=== PATIENT | male | born 1960 | race Caucasian/White ===

== ENCOUNTER 2018-08-01 17:22 | Inpatient (IN) | payer OTHER, MEDICARE ==
[2018-08-01] MEDS ORDERED: SODIUM CHLORIDE 0.9% 1,000 ML IV STA (17:51)
[2018-08-01] MEDS ORDERED: methylPREDNISolone SOD SUCCI 125 MG/2 ML VIAL IV STA (17:51)
[2018-08-01 18:04] LABS: Basophils # (A) 0.1 k/uL (0-0.2); Basophils % (A) 1 %; Eosinophils # (A) 0.3 k/uL (0-0.7); Eosinophils % (A) 2 %; HCT 48.8 % (39.0-53.0); HGB 15.9 gm/dL (13.0-17.5); Lymphocytes % (A) 14 %; MCH 29.8 pg (25.0-35.0); MCHC 32.6 g/dL (31.0-37.0); MCV 91.6 fL (80.0-100.0); Mean Platelet Volume 6.9; Monocytes # (A) 0.8 k/uL (0-1.0); Monocytes % (A) 6 %; Neutrophils # (A) 11.6 k/uL (1.3-7.7); Neutrophils % (A) 77 %; Platelet Count 284 k/uL (150-450); RBC 5.32 m/uL (4.30-5.90)
[2018-08-01 18:13] LABS: INR 1.1 (<1.2); Partial Thromboplastin Time 22.8 sec (22.0-30.0); Prothrombin Time 10.3 sec (9.0-12.0)
[2018-08-01 18:18] LABS: ALT 114 U/L (21-72); AST 82 U/L (17-59); Albumin 3.7 g/dL (3.5-5.0); Alkaline Phosphatase 114 U/L (38-126); Anion Gap 10 mmol/L; Blood Urea Nitrogen 28 mg/dL (9-20); Calcium 9.7 mg/dL (8.4-10.2); Carbon Dioxide 33 mmol/L (22-30); Chloride 96 mmol/L (98-107); Glucose 118 mg/dL (74-99); Magnesium 1.7 mg/dL (1.6-2.3); Potassium 3.7 mmol/L (3.5-5.1); Sodium 139 mmol/L (137-145); Total Bilirubin 0.5 mg/dL (0.2-1.3); Total Protein 7.1 g/dL (6.3-8.2)
[2018-08-01] MEDS ORDERED: AZITHROMYCIN 500 MG in SODIUM CHLORIDE 0.9% 250 ML IVPB STA (18:29)
[2018-08-01] MEDS ORDERED: IPRATROPIUM 0.5 MG/2.5 ML NEBU INHALATION STA (18:32)
[2018-08-01] MEDS ORDERED: cefTRIAXone IN SWFI 1,000 MG/10 ML SYRINGE IVP STA (18:32)
[2018-08-01] MEDS ORDERED: ALBUTEROL NEBULIZED 2.5 MG/3 ML INHALATION STA (18:32)
--- NOTE | 2018-08-01 18:34 | XR ---
EXAMINATION TYPE: XR chest 1V DATE OF EXAM: 08/01/2018 COMPARISON: 09/29/2016 HISTORY: Short of breath TECHNIQUE: Single frontal view of the chest is obtained. FINDINGS: There is coarse infiltrate in both lungs. Heart is probably enlarged. There are chest lead s. IMPRESSION: Extensive fibrotic changes. Increasing bilateral pulmonary infiltrates compared to old e xam. No obvious heart failure.
[2018-08-01 18:48] LABS: Creatine Kinase MB 3.5 ng/mL (0.0-2.4); Troponin I 0.04 ng/mL (0.000-0.034)
--- NOTE | 2018-08-01 19:09 | ED ---
General Adult HPI - General Chief complaint: Shortness of Breath Stated complaint: EMMANUEL (pulmonary Fibrosis) Source: patient Mode of arrival: wheelchair Limitations: no limitations - History of Present Illness Initial comments: Dictation was produced using [employer] dictation software. please excuse any grammatical, word or spelling errors. Chief Complaint: 50-year-old male with past medical history of pulmonary fibrosis, COPD, hypertension, heart failure presents with difficult in breathing 2 weeks. History of Present Illness: Patient is a 50-year-old male with past medical history of extensive pulmonary fibrosis. He is on home oxygen about 4-5 L. Patient states that he's been increasingly short of breath, producing sputum. Denies any coughing. Patient states he was more hypoxic than usual. Patient has no leg breaker. Patient denies any constitutional symptoms. The ROS documented in this emergency department record has been reviewed and confirmed by me. Those systems with pertinent positive or negative responses have been documented in the HPI. All other systems are other negative and/or noncontributory. - Related Data Home Medications Medication Instructions Recorded Confirmed Cholecalciferol [Vitamin D3] 2,000 unit PO DAILY 06/19/16 08/01/18 Cyclobenzaprine [Flexeril] 10 mg PO TID PRN 06/19/16 08/01/18 Gabapentin [Neurontin] 900 mg PO QID 06/19/16 08/01/18 Misoprostol [Cytotec] 200 mcg PO QID 06/19/16 08/01/18 Fluticasone Nasal [place] [Flonase 1 spray EA NOSTRIL BID PRN 09/03/16 08/01/18 Nasal [place]] Naproxen 500 mg PO BID 09/11/16 08/01/18 Enalapril [Vasotec] 20 mg PO BID 08/01/18 08/01/18 Hydrochlorothiazide [Hydrodiuril] 25 mg PO DAILY 08/01/18 08/01/18 Hydrophilic Cream [Kerodex 71 1 applic TOPICAL DAILY 08/01/18 08/01/18 Cream] Lactobacillus Acidophilus 1 tab PO DAILY 08/01/18 08/01/18 [Acidophilus] Loratadine [Claritin] 10 mg PO DAILY 08/01/18 08/01/18 Metoprolol Tartrate [Lopressor] 12.5 mg PO BID 08/01/18 08/01/18 Morphine Sulfate [Ms Contin] 15 mg PO TID 08/01/18 08/01/18 Multivitamins, Thera [Multivitamin 1 tab PO DAILY 08/01/18 08/01/18 (formulary)] Naloxone HCl [Narcan] 4 mg NASAL DIRECTED 08/01/18 08/01/18 Nintedanib Esylate [Ofev] 150 mg PO AC-BID 08/01/18 08/01/18 Polyethylene Glycol 3350 [Miralax] 17 gm PO DAILY 08/01/18 08/01/18 Venlafaxine HCl [Effexor XR] 75 mg PO DAILY 08/01/18 08/01/18 guaiFENesin 400 mg PO BID 08/01/18 08/01/18 hydrOXYzine PAMOATE 25 mg PO Q8H PRN 08/01/18 08/01/18 predniSONE 15 mg PO DAILY 08/01/18 08/01/18 Previous Rx's Medication Instructions Recorded Docusate [Colace] 100 mg PO BID cap 09/19/16 Allergies Allergy/AdvReac Type Severity Reaction Status Date / Time fentanyl AdvReac "MADE ME Verified 08/01/18 17:42 FEEL TERRIBLE" Review of Systems ROS Statement: Those systems with pertinent positive or pertinent negative responses have been documented in the HPI. ROS Other: All systems not noted in ROS Statement are negative. Past Medical History Past Medical History: Heart Failure, COPD, Hypertension, Osteoarthritis (OA) Additional Past Medical History / Comment(s): chronic back pain (secondary to "nerve damage") pulmonary fibrosis, home O@ at 2-4 L, pneumothorax History of Any Multi-Drug Resistant Organisms: None Reported Past Surgical History: Back Surgery Past Anesthesia/Blood Transfusion Reactions: No Reported Reaction Past Psychological History: Depression Smoking Status: Former smoker Past Alcohol Use History: None Reported Past Drug Use History: None Reported General Exam - General Exam Comments Initial Comments: PHYSICAL EXAM: General Impression: Alert and oriented x3, acute respiratory distress and cyanotic in the lips HEENT: Normocephalic atraumatic, extra-ocular movements intact, pupils equal and reactive to light bilaterally, mucous membranes moist. Cardiovascular: Distant heart sounds Chest: Bilateral lung crackles Abdomen: Bowel sounds present, abdomen soft, non-tender, non-distended, no organomegaly Musculoskeletal: Pulses present and equal in all extremities, 1+ edema bilateral lower extremities Motor: Power 5/5 bilaterally, no focal deficits noted Neurological: CN II-XII grossly intact, no focal motor or sensory deficits noted Skin: Intact with no visualized rashes Psych: Normal affect and mood Limitations: no limitations Course Vital Signs 08/01/18 08/01/18 08/01/18 17:24 18:35 18:44 Temperature 98.2 F 97.8 F Pulse Rate 110 H 95 91 Respiratory 22 16 16 Rate Blood Pressure 105/75 121/85 O2 Sat by Pulse 89 L 99 Oximetry 08/01/18 08/01/18 18:58 19:07 Temperature Pulse Rate 95 91 Respiratory 18 17 Rate Blood Pressure O2 Sat by Pulse Oximetry Medical Decision Making - Medical Decision Making ED course: 58-year-old male with extensive pulmonary history presents with worsening difficulty in breathing. Patient was hypoxic upon arrival. He was immediately placed on BiPAP. Vital signs on BiPAP are within normal limits. Patient appeared very toxic in severe respiratory distress upon arrival. Laboratory evaluation obtained. Leukocytosis of 15.0. Cardiac panel is negative. Metabolic panel shows non-gap acidosis likely secondary to chronic respiratory acidosis. Glucose 118. Rest metabolic panel is unremarkable. Troponin is 0.04. EKG shows findings to suggest cardiac ischemia. Patient started on heparin for NSTEMIPatient treated for community acquired pneumonia. There is concern for cardiac process. Troponin could be elevated from cardiomyopathy versus sepsis or given EKG findings it raises the suspicion for non-ST elevation [place]. Patient started on low-dose heparin. Patient be admitted. EKG Interpretation: A 12 lead EKG was obtained. It was interpreted by myself and attending physician. There is a P wave before every QRS complex. Rate is 96. Rhythm is sinus rhythm,. Interval 136, QRS 96, QTC 502. There appears to be diffuse ST segment depressions and T-wave inversions - Lab Data Result diagrams: 08/01/18 17:52 08/01/18 17:52 Lab Results 08/01/18 08/01/18 08/01/18 Range/Units 17:52 17:52 17:52 WBC 15.0 H (3.8-10.6) k/uL RBC 5.32 (4.30-5.90) m/uL Hgb 15.9 (13.0-17.5) gm/dL Hct 48.8 (39.0-53.0) % MCV 91.6 (80.0-100.0) fL MCH 29.8 (25.0-35.0) pg MCHC 32.6 (31.0-37.0) g/dL RDW 15.0 (11.5-15.5) % Plt Count 284 (150-450) k/uL Neutrophils % 77 % Lymphocytes % 14 % Monocytes % 6 % Eosinophils % 2 % Basophils % 1 % Neutrophils # 11.6 H (1.3-7.7) k/uL Lymphocytes # 2.0 (1.0-4.8) k/uL Monocytes # 0.8 (0-1.0) k/uL Eosinophils # 0.3 (0-0.7) k/uL Basophils # 0.1 (0-0.2) k/uL PT (9.0-12.0) sec INR (<1.2) APTT (22.0-30.0) sec Sodium 139 (137-145) mmol/L Potassium 3.7 (3.5-5.1) mmol/L Chloride 96 L (98-107) mmol/L Carbon Dioxide 33 H (22-30) mmol/L Anion Gap 10 mmol/L BUN 28 H (9-20) mg/dL Creatinine 1.00 (0.66-1.25) mg/dL Est GFR (CKD-EPI)AfAm >90 (>60 ml/min/1.73 sqM) Est GFR (CKD-EPI)NonAf 83 (>60 ml/min/1.73 sqM) Glucose 118 H (74-99) mg/dL Calcium 9.7 (8.4-10.2) mg/dL Magnesium 1.7 (1.6-2.3) mg/dL Total Bilirubin 0.5 (0.2-1.3) mg/dL AST 82 H (17-59) U/L ALT 114 H (21-72) U/L Alkaline Phosphatase 114 (38-126) U/L Total Creatine Kinase 37 L (55-170) U/L CK-MB (CK-2) 3.5 H* (0.0-2.4) ng/mL CK-MB (CK-2) Rel Index 9.5 Troponin I 0.040 H* (0.000-0.034) ng/mL NT-Pro-B Natriuret Pep pg/mL Total Protein 7.1 (6.3-8.2) g/dL Albumin 3.7 (3.5-5.0) g/dL 08/01/18 08/01/18 Range/Units 17:52 17:52 WBC (3.8-10.6) k/uL RBC (4.30-5.90) m/uL Hgb (13.0-17.5) gm/dL Hct (39.0-53.0) % MCV (80.0-100.0) fL MCH (25.0-35.0) pg MCHC (31.0-37.0) g/dL RDW (11.5-15.5) % Plt Count (150-450) k/uL Neutrophils % % Lymphocytes % % Monocytes % % Eosinophils % % Basophils % % Neutrophils # (1.3-7.7) k/uL Lymphocytes # (1.0-4.8) k/uL Monocytes # (0-1.0) k/uL Eosinophils # (0-0.7) k/uL Basophils # (0-0.2) k/uL PT 10.3 (9.0-12.0) sec INR 1.1 (<1.2) APTT 22.8 (22.0-30.0) sec Sodium (137-145) mmol/L Potassium (3.5-5.1) mmol/L Chloride (98-107) mmol/L Carbon Dioxide (22-30) mmol/L Anion Gap mmol/L BUN (9-20) mg/dL Creatinine (0.66-1.25) mg/dL Est GFR (CKD-EPI)AfAm (>60 ml/min/1.73 sqM) Est GFR (CKD-EPI)NonAf (>60 ml/min/1.73 sqM) Glucose (74-99) mg/dL Calcium (8.4-10.2) mg/dL Magnesium (1.6-2.3) mg/dL Total Bilirubin (0.2-1.3) mg/dL AST (17-59) U/L ALT (21-72) U/L Alkaline Phosphatase (38-126) U/L Total Creatine Kinase (55-170) U/L CK-MB (CK-2) (0.0-2.4) ng/mL CK-MB (CK-2) Rel Index Troponin I (0.000-0.034) ng/mL NT-Pro-B Natriuret Pep 94577 pg/mL Total Protein (6.3-8.2) g/dL Albumin (3.5-5.0) g/dL Disposition Clinical Impression: NSTEMI (non-ST elevated myocardial infarction), Acute respiratory failure with hypoxia Disposition: ADMITTED IP TO THIS HOSP Referrals: [facility],Clinic [Primary Care Provider] - 1-2 days Decision Time: 19:34
[2018-08-01] MEDS ORDERED: NALOXONE 0.4 MG/ML 1 ML VIAL IV PRN (19:28)
[2018-08-01] MEDS ORDERED: HEPARIN SODIUM,PORCINE 5,000 UNIT/ML 1 ML VIAL IV ONE (19:35)
[2018-08-01] MEDS ORDERED: HEPARIN SODIUM,PORCINE 5,000 UNIT/ML 1 ML VIAL IV PRN (19:35)
[2018-08-01] MEDS: IPRATROPIUM-ALBUTEROL 3 ML NEB INHALATION SCH (19:41)
[2018-08-01] MEDS ORDERED: IPRATROPIUM-ALBUTEROL 3 ML NEB INHALATION PRN (19:44)
[2018-08-01] MEDS ORDERED: HEPARIN SOD,PORK IN 0.45% NACL 25,000 UNIT in 0.45% NACL 1 500ML.BAG IV SCH (19:45)
[2018-08-01] MEDS ORDERED: NITROGLYCERIN SL TABS 0.4 MG TAB SUBLINGUAL PRN (19:49)
[2018-08-01] MEDS ORDERED: hydrOXYzine PAMOATE 25 MG CAP PO PRN (22:03)
[2018-08-01] MEDS ORDERED: CYCLOBENZAPRINE 10 MG TAB PO PRN (22:03)
[2018-08-01] MEDS ORDERED: FLUTICASONE 50MCG/SPRAY NASAL 16GM EA NOSTRIL PRN (22:03)
[2018-08-01] MEDS ORDERED: NON-FORMULARY DRUG (Naloxone Hcl [Narcan] 4 MG) NASAL SCH (22:15)
[2018-08-01] MEDS: guaiFENesin 600 MG TABLET.ER PO SCH (23:03)
[2018-08-01] MEDS: MORPHINE SULFATE ER 15 MG TABLET PO SCH (23:03)
[2018-08-01] MEDS: METOPROLOL TARTRATE 12.5 MG TAB PO SCH (23:04)
[2018-08-01] MEDS: LISINOPRIL 20 MG TAB PO SCH (23:04)
[2018-08-01] MEDS: GABAPENTIN 300 MG CAP PO SCH (23:04)
[2018-08-01] MEDS: Nintedanib Esylate [Ofev] 150 MG PO SCH (23:30)
[2018-08-01] MEDS: NAPROXEN 250 MG TAB PO SCH (23:30)
[2018-08-01] MEDS: DOCUSATE 100 MG CAP PO SCH (23:31)
[2018-08-01] MEDS: MISOPROSTOL 200 MCG TAB PO SCH (23:32)
[2018-08-02] MEDS: methylPREDNISolone SOD SUCCI 125 MG/2 ML VIAL IV SCH ×4 (00:38→17:23)
[2018-08-02 00:58] VITALS: BMI 24.2
[2018-08-02 01:52] LABS: Troponin I 0.032 ng/mL (0.000-0.034)
[2018-08-02 01:53] LABS: Creatine Kinase MB 3.2 ng/mL (0.0-2.4)
[2018-08-02] MEDS: Nintedanib Esylate [Ofev] 150 MG PO SCH ×2 (06:22→17:24)
[2018-08-02 06:46] LABS: Glucose,Whole Blood 151 mg/dL (75-99)
[2018-08-02 06:53] LABS: Cholesterol 139 mg/dL (<200); HDL Cholesterol 73 mg/dL (40-60); LDL Cholesterol,Calculated 49 mg/dL (0-99); Triglycerides 84 mg/dL (<150)
[2018-08-02 07:03] LABS: Creatine Kinase MB 3.5 ng/mL (0.0-2.4); Troponin I 0.036 ng/mL (0.000-0.034)
[2018-08-02] MEDS: IPRATROPIUM-ALBUTEROL 3 ML NEB INHALATION SCH ×4 (07:47→19:30)
[2018-08-02] MEDS: INSULIN ASPART 100 UNIT/ML 1 ML 10 ML VIAL SQ SCH ×4 (07:51→21:32)
[2018-08-02] MEDS: ASPIRIN 325 MG TAB PO SCH (08:13)
[2018-08-02] MEDS: GABAPENTIN 300 MG CAP PO SCH ×4 (08:13→21:35)
[2018-08-02] MEDS: NAPROXEN 250 MG TAB PO SCH ×3 (08:13→21:35)
[2018-08-02] MEDS: LISINOPRIL 20 MG TAB PO SCH (08:13)
[2018-08-02] MEDS: METOPROLOL TARTRATE 12.5 MG TAB PO SCH ×2 (08:13→21:36)
[2018-08-02] MEDS: VENLAFAXINE HCL ER 75 MG CAP PO SCH (08:13)
[2018-08-02] MEDS: CHOLECALCIFEROL 1,000 UNIT TAB PO SCH (08:13)
[2018-08-02] MEDS: LACTOBACILLUS ACIDOPH & BULGAR 1 EACH PACKET PO SCH ×2 (08:13→12:47)
[2018-08-02] MEDS: DOCUSATE 100 MG CAP PO SCH ×2 (08:14→21:36)
[2018-08-02] MEDS: LORATADINE 10 MG TAB PO SCH (08:14)
[2018-08-02] MEDS: MULTIVITAMINS, THERA 1 EACH TAB PO SCH (08:14)
[2018-08-02] MEDS: MISOPROSTOL 200 MCG TAB PO SCH ×5 (08:14→21:34)
[2018-08-02] MEDS: MORPHINE SULFATE ER 15 MG TABLET PO SCH ×3 (08:14→21:48)
[2018-08-02] MEDS: guaiFENesin 600 MG TABLET.ER PO SCH ×2 (08:14→21:37)
[2018-08-02] MEDS ORDERED: POLYETHYLENE GLYCOL 3350 17 GM POWD.PACK PO SCH (09:00)
[2018-08-02] MEDS ORDERED: HYDROCHLOROTHIAZIDE 25 MG TAB PO SCH (09:00)
[2018-08-02] MEDS ORDERED: predniSONE 20 MG TAB PO SCH (09:00)
[2018-08-02] MEDS: FUROSEMIDE 10 MG/ML 4 ML VIAL IV SCH ×2 (10:34→21:33)
--- NOTE | 2018-08-02 11:22 | P.CNPUL ---
History of Present Illness Consult date: 08/02/18 Requesting physician: Cristian Mojica Reason for consult: dyspnea, pulmonary fibrosis Chief complaint: Shortness of breath History of present illness: This is a 58-year-old white male with history of usual interstitial pneumonitis/ IPF/UIP, patient was diagnosed via thoracoscopic lung biopsy about 2 years ago. He normally sees Dr. Plunkett on a regular basis, patient has been treated with ofev, and over the last 2 years, according to the patient his shortness of breath has been progressively getting worse. He is maintained on oxygen at 4 L/ m via nasal cannula. Patient presented to the ER with mostly worsening shortness of breath, abnormal chest x-ray showing diffuse interstitial changes bilaterally, underlying pneumonia or underlying pulmonary edema is not entirely ruled out. ProBNP level was significantly elevated, and the troponins were borderline elevated. Patient was started on heparin, admitted, and a cardiology consultation and pulmonary consultation were both initiated. Patient denies any chest pain, denies any diaphoresis, denies any fever or chills, no hemoptysis. Denies any palpitations. His PTT is therapeutic. He does have a leukocytosis with WBC count of 15.0. Rest of the labs were basically unremarkable. During my evaluation, patient was basically relatively asymptomatic except for his chronic shortness of breath. Review of Systems 14 point review of systems were obtained, please refer to pertinent positives and negatives in HPI, otherwise remaining systems are negative Past Medical History Past Medical History: Heart Failure, COPD, Hypertension, Osteoarthritis (OA) Additional Past Medical History / Comment(s): chronic back pain (secondary to "nerve damage") pulmonary fibrosis, home O@ at 2-4 L, pneumothorax History of Any Multi-Drug Resistant Organisms: None Reported Past Surgical History: Back Surgery Past Anesthesia/Blood Transfusion Reactions: No Reported Reaction Past Psychological History: Depression Smoking Status: Former smoker Past Alcohol Use History: None Reported Past Drug Use History: None Reported Additional Drug Use History / Comment(s): . Medications and Allergies Home Medications Medication Instructions Recorded Confirmed Type Cholecalciferol [Vitamin D3] 2,000 unit PO DAILY 06/19/16 08/01/18 History Cyclobenzaprine [Flexeril] 10 mg PO TID PRN 06/19/16 08/01/18 History Gabapentin [Neurontin] 900 mg PO QID 06/19/16 08/01/18 History Misoprostol [Cytotec] 200 mcg PO QID 06/19/16 08/01/18 History Fluticasone Nasal [place] [Flonase 1 spray EA NOSTRIL BID PRN 09/03/16 08/01/18 History Nasal [place]] Naproxen 500 mg PO BID 09/11/16 08/01/18 History Docusate [Colace] 100 mg PO BID cap 09/19/16 08/01/18 Rx Enalapril [Vasotec] 20 mg PO HS 08/01/18 08/02/18 History Hydrochlorothiazide [Hydrodiuril] 25 mg PO DAILY 08/01/18 08/01/18 History Hydrophilic Cream [Kerodex 71 1 applic TOPICAL DAILY 08/01/18 08/01/18 History Cream] Lactobacillus Acidophilus 1 tab PO DAILY 08/01/18 08/01/18 History [Acidophilus] Loratadine [Claritin] 10 mg PO DAILY 08/01/18 08/01/18 History Metoprolol Tartrate [Lopressor] 12.5 mg PO BID 08/01/18 08/01/18 History Morphine Sulfate [Ms Contin] 15 mg PO TID 08/01/18 08/01/18 History Multivitamins, Thera [Multivitamin 1 tab PO DAILY 08/01/18 08/01/18 History (formulary)] Naloxone HCl [Narcan] 4 mg NASAL DIRECTED 08/01/18 08/01/18 History Nintedanib Esylate [Ofev] 150 mg PO AC-BID 08/01/18 08/01/18 History Polyethylene Glycol 3350 [Miralax] 17 gm PO 1700 08/01/18 08/01/18 History Venlafaxine HCl [Effexor XR] 75 mg PO DAILY 08/01/18 08/01/18 History guaiFENesin 400 mg PO BID 08/01/18 08/01/18 History hydrOXYzine PAMOATE 25 mg PO Q8H PRN 08/01/18 08/01/18 History predniSONE 15 mg PO DAILY 08/01/18 08/01/18 History Allergies Allergy/AdvReac Type Severity Reaction Status Date / Time fentanyl AdvReac "MADE ME Verified 08/01/18 17:42 FEEL TERRIBLE" Physical Exam Vitals: Vital Signs Temp Pulse Pulse Resp BP BP Pulse Ox 08/02/18 08:28 20 89 L 08/02/18 08:00 97.7 F 80 20 127/92 100 08/02/18 07:47 80 08/02/18 04:00 97.4 F L 64 14 108/75 99 08/02/18 03:19 99 24 08/01/18 20:00 76 18 121/85 99 08/01/18 19:41 97.8 F 99 22 134/93 91 L 08/01/18 19:30 97 18 08/01/18 19:07 91 17 08/01/18 18:58 95 18 08/01/18 18:44 91 16 08/01/18 18:35 97.8 F 95 16 121/85 99 08/01/18 17:24 98.2 F 110 H 22 105/75 89 L Intake and Output 08/01/18 08/02/18 08/02/18 22:59 06:59 14:59 Intake Total 320 184.067 Balance 320 184.067 Intake: Intake, IV Titration 200 184.067 Amount Heparin Sod,Pork in 0.45% 184.067 NaCl 25,000 unit In 0.45 % NaCl 1 500ml.bag @ 9 UNITS/KG/HR 20.08 mls/hr IV .Q24H SASHA Rx#: [id number] Sodium Chloride 0.9% 1, 200 000 ml @ 50 mls/hr IV . Q20H STA Rx#:[id number] Oral 120 Other: Voiding Method Urinal Urinal Weight 107.5 kg 111.5 kg Physical Exam: Revealed a 58-year-old white male, on BiPAP, in no distress. Head: Atraumatic, normocephalic. HEENT:[Neck is supple.] [No neck masses.] [No thyromegaly.] [No JVD.] Chest: [Fine crackles at the bases bilaterally. Cardiac Exam: [Normal S1 and S2, no S3 gallop, no murmur.] Abdomen: [Soft, nontender, no megaly, no rebound, no guarding, normal bowel sounds.] Extremities: [Positive clubbing, trace edema, no cyanosis.] Neurological Exam: [No focal neurologic deficit.] Lymphatics: Lymphadenopathy. Psychiatric: Normal mood affect and mental status examination. Results - Laboratory Findings CBC and BMP: 08/01/18 17:52 08/01/18 17:52 PT/INR, D-dimer PT 10.3 sec (9.0-12.0) 08/01/18 17:52 INR 1.1 (<1.2) 08/01/18 17:52 Abnormal lab findings: Abnormal Labs 08/01/18 08/01/18 08/01/18 17:52 17:52 17:52 WBC 15.0 H Neutrophils # 11.6 H APTT Chloride 96 L Carbon Dioxide 33 H BUN 28 H Glucose 118 H POC Glucose (mg/dL) AST 82 H ALT 114 H Total Creatine Kinase 37 L CK-MB (CK-2) 3.5 H* Troponin I 0.040 H* HDL Cholesterol 08/02/18 08/02/18 08/02/18 01:04 06:02 06:02 WBC Neutrophils # APTT Chloride Carbon Dioxide BUN Glucose POC Glucose (mg/dL) AST ALT Total Creatine Kinase 41 L 31 L CK-MB (CK-2) 3.2 H* 3.5 H* Troponin I 0.036 H* HDL Cholesterol 73 H 08/02/18 08/02/18 06:02 06:35 WBC Neutrophils # APTT 45.7 H Chloride Carbon Dioxide BUN Glucose POC Glucose (mg/dL) 151 H AST ALT Total Creatine Kinase CK-MB (CK-2) Troponin I HDL Cholesterol - Diagnostic Findings Chest x-ray: image reviewed (As noted in HPI) Assessment and Plan Assessment: Impression: 1 acute on chronic hypoxic respiratory failure secondary to worsening the usual interstitial pneumonitis. However the possibility of underlying interstitial edema and pneumonia is difficult to rule out based on the chest x-ray appearance and based on the clinical history. 2 abnormal troponin could be related to underlying cardiomyopathy or non-ST elevation myocardial infarction. Patient is yet to be seen by cardiology on consultation, presently on low-dose heparin. 3 multiple comorbidities including hypertension, osteoarthritis, chronic back pain, chronic hypoxic respiratory failure. Recommendation: I fully agree with the present treatment plan, patient will be given a trial of steroids, diuretics, bronchodilators, and awaiting cardiology consultation regarding his abnormal troponin. Will continue to follow. Time with Patient: Greater than 30
--- NOTE | 2018-08-02 11:42 | P.CRDCN ---
History of Present Illness Consult date: 08/02/18 Requesting physician: Cristian Mojica Reason for Consult (text): Elevated troponins Consult reason: shortness of breath, other Chief complaint: Shortness of breath, elevated troponins History of present illness: This is a 58-year-old white male patient who presented to the emergency department on 08/01/2018 at 1700 for evaluation of worsening shortness of breath over the course of the last 2 weeks. Patient has a known history of pulmonary fibrosis, UIP, COPD, with chronic hypoxemic respiratory failure, he wears 4-7 L of oxygen at his baseline. Other history includes hypertension, osteoarthritis. Patient had a previous wedge lung biopsy was diagnosed with IPF /UIP, follows with Dr. Weber in the pulmonary office, and has been treated with Ofev. Patient denies having any chest pain, denied any fever or chills, palpitations, hemoptysis. Chest x-ray showed diffuse interstitial changes bilaterally, underlying pneumonia or pulmonary edema was difficult to entirely rule out. Lab work showed a cyst, with an WBC of 15.0, the rest of the CBC was unremarkable, BUN of 28, creatinine is 1.0. Cardiac enzymes and troponins were elevated, troponins were 0.040, 0.032, and 0.036. ProBNP was significantly elevated at 10,100. Patient was in significant respiratory culture on presentation, respirations were labored and tachypneic, his pulse ox was 89% on 5 L per nasal cannula, patient was placed on BiPAP support, on which he remains this morning. He is afebrile, he states he has occasional cough, and at times is able to bring up thick green sputum. He has mild pretibial edema. EKG showed sinus rhythm with PACs, nonspecific ST and T-wave abnormality, in the form of T-wave inversion in the inferior and anterolateral leads suggesting ischemia. Were asked to see the patient in consultation in regards to elevated troponins. Review of Systems All systems: negative Constitutional: Denies chills, Denies fever Eyes: denies blurred vision, denies pain Ears, nose, mouth and throat: Denies headache, Denies sore throat Cardiovascular: Reports dyspnea on exertion, Reports leg edema, Denies chest pain, Denies shortness of breath Respiratory: Reports cough with sputum, Reports dyspnea, Reports home oxygen, Reports pain on inspiration, Reports respiratory infections, Denies cough Gastrointestinal: Denies abdominal pain, Denies diarrhea, Denies nausea, Denies vomiting Musculoskeletal: Denies myalgias Integumentary: Denies pruritus, Denies rash Neurological: Denies numbness, Denies weakness Psychiatric: Denies anxiety, Denies depression Endocrine: Denies fatigue, Denies weight change Past Medical History Past Medical History: Heart Failure, COPD, Hypertension, Osteoarthritis (OA) Additional Past Medical History / Comment(s): chronic back pain (secondary to "nerve damage") pulmonary fibrosis, home O@ at 2-4 L, pneumothorax History of Any Multi-Drug Resistant Organisms: None Reported Past Surgical History: Back Surgery Past Anesthesia/Blood Transfusion Reactions: No Reported Reaction Past Psychological History: Depression Smoking Status: Former smoker Past Alcohol Use History: None Reported Past Drug Use History: None Reported Additional Drug Use History / Comment(s): . Medications and Allergies Home Medications Medication Instructions Recorded Confirmed Type Cholecalciferol [Vitamin D3] 2,000 unit PO DAILY 06/19/16 08/01/18 History Cyclobenzaprine [Flexeril] 10 mg PO TID PRN 06/19/16 08/01/18 History Gabapentin [Neurontin] 900 mg PO QID 06/19/16 08/01/18 History Misoprostol [Cytotec] 200 mcg PO QID 06/19/16 08/01/18 History Fluticasone Nasal [place] [Flonase 1 spray EA NOSTRIL BID PRN 09/03/16 08/01/18 History Nasal [place]] Naproxen 500 mg PO BID 09/11/16 08/01/18 History Docusate [Colace] 100 mg PO BID cap 09/19/16 08/01/18 Rx Enalapril [Vasotec] 20 mg PO HS 08/01/18 08/02/18 History Hydrochlorothiazide [Hydrodiuril] 25 mg PO DAILY 08/01/18 08/01/18 History Hydrophilic Cream [Kerodex 71 1 applic TOPICAL DAILY 08/01/18 08/01/18 History Cream] Lactobacillus Acidophilus 1 tab PO DAILY 08/01/18 08/01/18 History [Acidophilus] Loratadine [Claritin] 10 mg PO DAILY 08/01/18 08/01/18 History Metoprolol Tartrate [Lopressor] 12.5 mg PO BID 08/01/18 08/01/18 History Morphine Sulfate [Ms Contin] 15 mg PO TID 08/01/18 08/01/18 History Multivitamins, Thera [Multivitamin 1 tab PO DAILY 08/01/18 08/01/18 History (formulary)] Naloxone HCl [Narcan] 4 mg NASAL DIRECTED 08/01/18 08/01/18 History Nintedanib Esylate [Ofev] 150 mg PO AC-BID 08/01/18 08/01/18 History Polyethylene Glycol 3350 [Miralax] 17 gm PO 1700 08/01/18 08/01/18 History Venlafaxine HCl [Effexor XR] 75 mg PO DAILY 08/01/18 08/01/18 History guaiFENesin 400 mg PO BID 08/01/18 08/01/18 History hydrOXYzine PAMOATE 25 mg PO Q8H PRN 08/01/18 08/01/18 History predniSONE 15 mg PO DAILY 08/01/18 08/01/18 History Allergies Allergy/AdvReac Type Severity Reaction Status Date / Time fentanyl AdvReac "MADE ME Verified 08/01/18 17:42 FEEL TERRIBLE" Physical Exam Vitals: Vital Signs Temp Pulse Pulse Resp BP BP Pulse Ox 08/02/18 08:28 20 89 L 08/02/18 08:00 97.7 F 80 20 127/92 100 08/02/18 07:47 80 08/02/18 04:00 97.4 F L 64 14 108/75 99 08/02/18 03:19 99 24 08/01/18 20:00 76 18 121/85 99 08/01/18 19:41 97.8 F 99 22 134/93 91 L 08/01/18 19:30 97 18 08/01/18 19:07 91 17 08/01/18 18:58 95 18 08/01/18 18:44 91 16 08/01/18 18:35 97.8 F 95 16 121/85 99 08/01/18 17:24 98.2 F 110 H 22 105/75 89 L Intake and Output 08/01/18 08/02/18 08/02/18 22:59 06:59 14:59 Intake Total 320 184.067 Balance 320 184.067 Intake: Intake, IV Titration 200 184.067 Amount Heparin Sod,Pork in 0.45% 184.067 NaCl 25,000 unit In 0.45 % NaCl 1 500ml.bag @ 9 UNITS/KG/HR 20.08 mls/hr IV .Q24H SASHA Rx#: [id number] Sodium Chloride 0.9% 1, 200 000 ml @ 50 mls/hr IV . Q20H STA Rx#:[id number] Oral 120 Other: Voiding Method Urinal Urinal Weight 107.5 kg 111.5 kg GENERAL EXAM: Alert, pleasant, 58-year-old white male, on BiPAP support comfortable in no apparent distress. HEAD: Normocephalic/atraumatic. EYES: Normal reaction of pupils, equal size. Conjunctiva pink, sclera white. NOSE: Clear with pink turbinates. THROAT: No erythema or exudates. NECK: No masses, no JVD, no thyroid enlargement, no adenopathy. CHEST: No chest wall deformity. Symmetrical expansion. LUNGS: Equal air entry with coarse Velcro-like crackles at bilateral bases CVS: Regular rate and rhythm, normal S1 and S2, no gallops, no murmurs, no rubs ABDOMEN: Soft, nontender. No hepatosplenomegaly, normal bowel sounds, no guarding or rigidity. EXTREMITIES: No clubbing, mild pretibial edema, no cyanosis, 2+ pulses and upper and lower extremities. MUSCULOSKELETAL: Muscle strength and tone normal. SPINE: No scoliosis or deformity SKIN: No rashes CENTRAL NERVOUS SYSTEM: Alert and oriented -3. No focal deficits, tone is normal in all 4 extremities. PSYCHIATRIC: Alert and oriented -3. Appropriate affect. Intact judgment and insight. Results 08/01/18 17:52 08/01/18 17:52 Cardiac Enzymes 08/01/18 08/01/18 08/02/18 Range/Units 17:52 17:52 01:04 AST 82 H (17-59) U/L CK-MB (CK-2) 3.5 H* 3.2 H* (0.0-2.4) ng/mL Troponin I 0.040 H* 0.032 (0.000-0.034) ng/mL 08/02/18 Range/Units 06:02 AST (17-59) U/L CK-MB (CK-2) 3.5 H* (0.0-2.4) ng/mL Troponin I 0.036 H* (0.000-0.034) ng/mL Coagulation 18 08/02/18 Range/Units 17:52 06:02 PT 10.3 (9.0-12.0) sec APTT 22.8 45.7 H (22.0-30.0) sec Lipids 08/02/18 Range/Units 06:02 Triglycerides 84 (<150) mg/dL Cholesterol 139 (<200) mg/dL HDL Cholesterol 73 H (40-60) mg/dL CBC 08/01/18 Range/Units 17:52 WBC 15.0 H (3.8-10.6) k/uL RBC 5.32 (4.30-5.90) m/uL Hgb 15.9 (13.0-17.5) gm/dL Hct 48.8 (39.0-53.0) % Plt Count 284 (150-450) k/uL Comprehensive Metabolic Panel 08/01/18 Range/Units 17:52 Sodium 139 (137-145) mmol/L Potassium 3.7 (3.5-5.1) mmol/L Chloride 96 L (98-107) mmol/L Carbon Dioxide 33 H (22-30) mmol/L BUN 28 H (9-20) mg/dL Creatinine 1.00 (0.66-1.25) mg/dL Glucose 118 H (74-99) mg/dL Calcium 9.7 (8.4-10.2) mg/dL AST 82 H (17-59) U/L ALT 114 H (21-72) U/L Alkaline Phosphatase 114 (38-126) U/L Total Protein 7.1 (6.3-8.2) g/dL Albumin 3.7 (3.5-5.0) g/dL Current Medications Generic Name Dose Route Start Last Admin Trade Name Freq PRN Reason Stop Dose Admin Albuterol/Ipratropium 3 ml 08/01/18 20:00 08/02/18 07:47 Duoneb 0.5 Mg-3 Mg/3 Ml Soln INHALATION 3 ml RT-QID SASHA Administration Albuterol/Ipratropium 3 ml 08/01/18 19:44 Duoneb 0.5 Mg-3 Mg/3 Ml Soln INHALATION RT-Q2H PRN Shortness Of Breath Or Wheezing Aspirin 325 mg 08/02/18 09:00 08/02/18 08:13 Aspirin PO 325 mg DAILY SASHA Administration Cholecalciferol 2,000 unit 08/02/18 09:00 08/02/18 08:13 Vitamin D3 PO 2,000 unit DAILY SASHA Administration Cyclobenzaprine HCl 10 mg 08/01/18 22:03 Flexeril PO TID PRN Pain Docusate Sodium 100 mg 08/01/18 22:15 08/02/18 08:14 Colace PO 100 mg BID SASHA Administration Fluticasone Propionate 1 spray 08/01/18 22:03 08/02/18 01:50 Flonase Nasal [place] EA NOSTRIL 1 spray BID PRN Administration Allergy Symptoms Furosemide 20 mg 08/02/18 09:30 08/02/18 10:34 Lasix IV 20 mg Q12HR SASHA Administration Gabapentin 900 mg 08/01/18 22:15 08/02/18 08:13 Neurontin PO 900 mg QID SASHA Administration Guaifenesin 600 mg 08/01/18 22:15 08/02/18 08:14 Mucinex PO 600 mg BID SASHA Administration Hydroxyzine Pamoate 25 mg 08/01/18 22:03 Vistaril PO Q8H PRN Anxiety Sodium Chloride 1,000 mls @ 50 mls/hr 08/01/18 17:51 08/01/18 17:57 Saline 0.9% IV 08/02/18 13:50 50 mls/hr .Q20H STA Administration Insulin Aspart 0 unit 08/02/18 07:30 08/02/18 07:51 Novolog SQ 2 unit ACHS SASHA Administration Protocol Lactobacillus Acidoph/[place] 1 each 08/02/18 09:00 Lactinex PO DAILY [facility] Lisinopril 40 mg 08/02/18 21:00 Zestril PO HS [facility] Loratadine 10 mg 08/02/18 09:00 08/02/18 08:14 Claritin PO 10 mg DAILY SASHA Administration Methylprednisolone Sodium Succinate 60 mg 08/02/18 00:00 08/02/18 06:28 Solu-Medrol IV 60 mg Q6HR SASHA Administration Metoprolol Tartrate 12.5 mg 08/01/18 22:15 08/02/18 08:13 Lopressor PO 12.5 mg BID SASHA Administration Misoprostol 200 mcg 08/01/18 22:15 08/01/18 23:32 Cytotec PO Not Given QID SASHA Morphine Sulfate 15 mg 08/01/18 22:15 08/02/18 08:14 Ms Contin PO 15 mg TID SASHA Administration Multi-Ingred Cream/Lotion/Oil/Oint 1 applic 08/02/18 09:00 Kerodex 71 Cream TOPICAL DAILY SASHA Multivitamins 1 each 08/02/18 12:00 08/02/18 08:14 Theragran PO 1 each DAILY@1200 SASHA Administration Naloxone HCl 0.2 mg 08/01/18 19:28 Narcan IV Q2M PRN Opioid Reversal Naproxen 500 mg 08/01/18 22:15 08/01/18 23:30 Naprosyn PO Not Given BID [facility] Nitroglycerin 0.4 mg 08/01/18 19:49 Nitrostat SUBLINGUAL Q5M PRN Chest Pain Nintedanib Esylate [ 150 mg 08/01/18 22:15 08/02/18 06:22 Ofev] 150 Mg PO Not Given AC-BID [facility] Polyethylene Glycol 17 gm 08/02/18 17:00 Miralax PO 1700 [facility] Venlafaxine HCl 75 mg 08/02/18 09:00 08/02/18 08:13 Effexor Xr PO 75 mg DAILY SASHA Administration Intake and Output 08/01/18 08/02/18 08/02/18 22:59 06:59 14:59 Intake Total 320 184.067 Balance 320 184.067 Intake: Intake, IV Titration 200 184.067 Amount Heparin Sod,Pork in 0.45% 184.067 NaCl 25,000 unit In 0.45 % NaCl 1 500ml.bag @ 9 UNITS/KG/HR 20.08 mls/hr IV .Q24H SASHA Rx#: [id number] Sodium Chloride 0.9% 1, 200 000 ml @ 50 mls/hr IV . Q20H STA Rx#:[id number] Oral 120 Other: Voiding Method Urinal Urinal Weight 107.5 kg 111.5 kg 08/01/18 17:52 08/01/18 17:52 - EKG Interpretation EKG shows: sinus rhythm EKG Interpretations (text) Sinus rhythm, with PACs, and nonspecific ST and T-wave abnormalities Assessment and Plan Plan: Assessment: #1. Acute exacerbation of congestive heart failure, with diastolic dysfunction , based on the cardiogram from 06/19/2016 #2. Acute on chronic hypoxemic respiratory failure, secondary to underlying interstitial edema, and possibility of community-acquired pneumonia #3. Elevated troponin, likely related to type II myocardial injury related to hypoxemia #4. History of a UIP, with chronic hypoxic rest or a failure #5. Hypertension #6. Osteoarthritis Plan: We'll obtain repeat EKG and echocardiogram. Elevation of troponins is likely related to acute on chronic hypoxemic respiratory failure, we'll discontinue heparin drip. Continue diuretics. Pulmonary is on consultation. We'll continue to follow I performed a history & physical examination of the patient and discussed their management with my nurse practitioner, Kitty Kaplan. I reviewed the nurse practitioner's note and agree with the documented findings and plan of care. Lung sounds are positive for coarse velcro like crackles. The findings and the impression was discussed with the patient. I attest to the documentation by the nurse practitioner. Time with Patient: Greater than 30
[2018-08-02 12:18] LABS: Glucose,Whole Blood 128 mg/dL (75-99)
[2018-08-02] MEDS: HYDROPHILIC CREAM 120 GM JAR TOPICAL SCH (12:47)
--- NOTE | 2018-08-02 13:30 | P.HPIM ---
History of Present Illness 58-year-old gentleman with a history of advanced interstitial pulmonary fibrosis versus anywhere between 9427 L Anna came in with complains of shortness of breath has been going on for about 2 weeks without any significant cough or sputum production chest x-ray showed pulmonary fibrosis patient has minimally elevated troponins as well as EKG showed some nonspecific ST-T wave changes. Patient was started on high-dose steroids there is no acute pneumonic process at this time. Patient was evaluated by pulmonology and the cardiology. Unsure whether patient is in heart failure exacerbation patient has bibasilar crackles and elevated BNP because of which patient was switched to Lasix from hydrochlorothiazide. Chest x-ray showing diffuse interstitial changes. A she is comparing of cough without any significant sputum production denied any fever chills and any hemoptysis. Denied any chest pain. Review of Systems REVIEW OF SYSTEMS: CONSTITUTIONAL: No fever, no malaise, no fatigue. HEENT: No recent visual problems or hearing problems. Denied any sore throat. CARDIOVASCULAR: No chest pain, orthopnea, PND, no palpitations, no syncope. PULMONARY: , no hemoptysis. GASTROINTESTINAL: No diarrhea, no nausea, no vomiting, no abdominal pain. Normoactive bowel sounds. NEUROLOGICAL: No headaches, no weakness, no numbness. HEMATOLOGICAL: Denies any bleeding or petechiae. GENITOURINARY: Denies any burning micturition, frequency, or urgency. MUSCULOSKELETAL/RHEUMATOLOGICAL: Denies any joint pain, swelling, or any muscle pain. ENDOCRINE: Denies any polyuria or polydipsia. The rest of the 14-point review of systems is negative. Past Medical History Past Medical History: Heart Failure, COPD, Hypertension, Osteoarthritis (OA) Additional Past Medical History / Comment(s): chronic back pain (secondary to "nerve damage") pulmonary fibrosis, home O@ at 2-4 L, pneumothorax History of Any Multi-Drug Resistant Organisms: None Reported Past Surgical History: Back Surgery Past Anesthesia/Blood Transfusion Reactions: No Reported Reaction Past Psychological History: Depression Smoking Status: Former smoker Past Alcohol Use History: None Reported Past Drug Use History: None Reported Additional Drug Use History / Comment(s): . Medications and Allergies Home Medications Medication Instructions Recorded Confirmed Type Cholecalciferol [Vitamin D3] 2,000 unit PO DAILY 06/19/16 08/01/18 History Cyclobenzaprine [Flexeril] 10 mg PO TID PRN 06/19/16 08/01/18 History Gabapentin [Neurontin] 900 mg PO QID 06/19/16 08/01/18 History Misoprostol [Cytotec] 200 mcg PO QID 06/19/16 08/01/18 History Fluticasone Nasal [place] [Flonase 1 spray EA NOSTRIL BID PRN 09/03/16 08/01/18 History Nasal [place]] Naproxen 500 mg PO BID 09/11/16 08/01/18 History Docusate [Colace] 100 mg PO BID cap 09/19/16 08/01/18 Rx Enalapril [Vasotec] 20 mg PO HS 08/01/18 08/02/18 History Hydrochlorothiazide [Hydrodiuril] 25 mg PO DAILY 08/01/18 08/01/18 History Hydrophilic Cream [Kerodex 71 1 applic TOPICAL DAILY 08/01/18 08/01/18 History Cream] Lactobacillus Acidophilus 1 tab PO DAILY 08/01/18 08/01/18 History [Acidophilus] Loratadine [Claritin] 10 mg PO DAILY 08/01/18 08/01/18 History Metoprolol Tartrate [Lopressor] 12.5 mg PO BID 08/01/18 08/01/18 History Morphine Sulfate [Ms Contin] 15 mg PO TID 08/01/18 08/01/18 History Multivitamins, Thera [Multivitamin 1 tab PO DAILY 08/01/18 08/01/18 History (formulary)] Naloxone HCl [Narcan] 4 mg NASAL DIRECTED 08/01/18 08/01/18 History Nintedanib Esylate [Ofev] 150 mg PO AC-BID 08/01/18 08/01/18 History Polyethylene Glycol 3350 [Miralax] 17 gm PO 1700 08/01/18 08/01/18 History Venlafaxine HCl [Effexor XR] 75 mg PO DAILY 08/01/18 08/01/18 History guaiFENesin 400 mg PO BID 08/01/18 08/01/18 History hydrOXYzine PAMOATE 25 mg PO Q8H PRN 08/01/18 08/01/18 History predniSONE 15 mg PO DAILY 08/01/18 08/01/18 History Allergies Allergy/AdvReac Type Severity Reaction Status Date / Time fentanyl AdvReac "MADE ME Verified 08/01/18 17:42 FEEL TERRIBLE" Physical Exam Vitals: Vital Signs Temp Pulse Pulse Resp BP BP Pulse Ox 08/02/18 12:15 84 18 109/78 100 08/02/18 11:56 78 08/02/18 11:46 77 08/02/18 08:28 20 89 L 08/02/18 08:00 97.7 F 84 80 20 127/92 100 08/02/18 07:47 80 08/02/18 04:00 97.4 F L 64 14 108/75 99 08/02/18 03:19 99 24 08/01/18 20:00 76 18 121/85 99 08/01/18 19:41 97.8 F 99 22 134/93 91 L 08/01/18 19:30 97 18 08/01/18 19:07 91 17 08/01/18 18:58 95 18 08/01/18 18:44 91 16 08/01/18 18:35 97.8 F 95 16 121/85 99 08/01/18 17:24 98.2 F 110 H 22 105/75 89 L Intake and Output 08/01/18 08/02/18 08/02/18 22:59 06:59 14:59 Intake Total 320 184.067 Balance 320 184.067 Intake: Intake, IV Titration 200 184.067 Amount Heparin Sod,Pork in 0.45% 184.067 NaCl 25,000 unit In 0.45 % NaCl 1 500ml.bag @ 9 UNITS/KG/HR 20.08 mls/hr IV .Q24H SASHA Rx#: [id number] Sodium Chloride 0.9% 1, 200 000 ml @ 50 mls/hr IV . Q20H STA Rx#:[id number] Oral 120 Other: Voiding Method Urinal Urinal Weight 107.5 kg 111.5 kg PHYSICAL EXAMINATION: GENERAL: The patient is alert and oriented x3, not in any acute distress. Well developed, well nourished. HEENT: Pupils are round and equally reacting to light. EOMI. No scleral icterus. No conjunctival pallor. Normocephalic, atraumatic. No pharyngeal erythema. No thyromegaly. CARDIOVASCULAR: S1 and S2 present. No murmurs, rubs, or gallops. PULMONARY: Diffuse bibasilar crackles ABDOMEN: Soft, nontender, nondistended, normoactive bowel sounds. No palpable organomegaly. MUSCULOSKELETAL: No joint swelling or deformity. EXTREMITIES: No cyanosis, clubbing, or pedal edema. NEUROLOGICAL: Gross neurological examination did not reveal any focal deficits. SKIN: No rashes. Results CBC & Chem 7: 08/01/18 17:52 08/01/18 17:52 Labs: Abnormal Lab Results - Last 24 Hours (Table) 08/01/18 08/01/18 08/01/18 Range/Units 17:52 17:52 17:52 WBC 15.0 H (3.8-10.6) k/uL Neutrophils # 11.6 H (1.3-7.7) k/uL APTT (22.0-30.0) sec Chloride 96 L (98-107) mmol/L Carbon Dioxide 33 H (22-30) mmol/L BUN 28 H (9-20) mg/dL Glucose 118 H (74-99) mg/dL POC Glucose (mg/dL) (75-99) mg/dL AST 82 H (17-59) U/L ALT 114 H (21-72) U/L Total Creatine Kinase 37 L (55-170) U/L CK-MB (CK-2) 3.5 H* (0.0-2.4) ng/mL Troponin I 0.040 H* (0.000-0.034) ng/mL HDL Cholesterol (40-60) mg/dL 08/02/18 08/02/18 08/02/18 Range/Units 01:04 06:02 06:02 WBC (3.8-10.6) k/uL Neutrophils # (1.3-7.7) k/uL APTT (22.0-30.0) sec Chloride (98-107) mmol/L Carbon Dioxide (22-30) mmol/L BUN (9-20) mg/dL Glucose (74-99) mg/dL POC Glucose (mg/dL) (75-99) mg/dL AST (17-59) U/L ALT (21-72) U/L Total Creatine Kinase 41 L 31 L (55-170) U/L CK-MB (CK-2) 3.2 H* 3.5 H* (0.0-2.4) ng/mL Troponin I 0.036 H* (0.000-0.034) ng/mL HDL Cholesterol 73 H (40-60) mg/dL 08/02/18 08/02/18 08/02/18 Range/Units 06:02 06:35 11:56 WBC (3.8-10.6) k/uL Neutrophils # (1.3-7.7) k/uL APTT 45.7 H (22.0-30.0) sec Chloride (98-107) mmol/L Carbon Dioxide (22-30) mmol/L BUN (9-20) mg/dL Glucose (74-99) mg/dL POC Glucose (mg/dL) 151 H 128 H (75-99) mg/dL AST (17-59) U/L ALT (21-72) U/L Total Creatine Kinase (55-170) U/L CK-MB (CK-2) (0.0-2.4) ng/mL Troponin I (0.000-0.034) ng/mL HDL Cholesterol (40-60) mg/dL Thrombosis Risk Factor Assmnt - Choose All That Apply Each Factor Represents 1 point: Age 41-60 years Other Risk Factors: No Other congenital or acquired thrombophilia - If yes, enter type in comment: No Thrombosis Risk Factor Assessment Total Risk Factor Score: 1 Thrombosis Risk Factor Assessment Level: Low Risk Assessment and Plan Plan: -Acute on chronic hypoxic respiratory failure secondary to pulmonary fibrosis patient was started on systemic steroids. -Cannot rule out chronic diastolic dysfunction with acute exacerbation ration is on oral Lasix at the 20 twice a day -Mildly elevated troponin secondary to hypoxemia cardiology evaluated the patient heparin was discontinued. -Hypertension -Osteoarthritis
[2018-08-02 17:05] LABS: Glucose,Whole Blood 130 mg/dL (75-99)
[2018-08-02] MEDS: POLYETHYLENE GLYCOL 3350 17 GM POWD.PACK PO SCH (17:23)
[2018-08-02 20:43] LABS: Glucose,Whole Blood 136 mg/dL (75-99)
[2018-08-02] MEDS ORDERED: LISINOPRIL 20 MG TAB PO SCH (21:00)
[2018-08-03] MEDS: methylPREDNISolone SOD SUCCI 125 MG/2 ML VIAL IV SCH ×5 (00:08→22:59)
[2018-08-03 06:19] LABS: Glucose,Whole Blood 175 mg/dL (75-99)
[2018-08-03] MEDS: INSULIN ASPART 100 UNIT/ML 1 ML 10 ML VIAL SQ SCH ×4 (06:56→21:25)
[2018-08-03] MEDS: IPRATROPIUM-ALBUTEROL 3 ML NEB INHALATION SCH ×4 (06:59→20:56)
[2018-08-03 07:01] LABS: HCT 42.2 % (39.0-53.0); HGB 13.2 gm/dL (13.0-17.5); MCH 28.8 pg (25.0-35.0); MCHC 31.3 g/dL (31.0-37.0); Mean Platelet Volume 6.7; Platelet Count 245 k/uL (150-450); RBC 4.59 m/uL (4.30-5.90); WBC 15.8 k/uL (3.8-10.6)
[2018-08-03 07:15] LABS: ALT 96 U/L (21-72); AST 48 U/L (17-59); Albumin 3.3 g/dL (3.5-5.0); Alkaline Phosphatase 93 U/L (38-126); Anion Gap 11 mmol/L; Blood Urea Nitrogen 35 mg/dL (9-20); Calcium 9.1 mg/dL (8.4-10.2); Carbon Dioxide 31 mmol/L (22-30); Chloride 94 mmol/L (98-107); Glucose 165 mg/dL (74-99); Potassium 4.1 mmol/L (3.5-5.1); Sodium 136 mmol/L (137-145); Total Bilirubin 0.5 mg/dL (0.2-1.3); Total Protein 6.2 g/dL (6.3-8.2)
[2018-08-03] MEDS: Nintedanib Esylate [Ofev] 150 MG PO SCH ×2 (08:46→18:12)
[2018-08-03] MEDS: DOCUSATE 100 MG CAP PO SCH ×2 (08:49→19:44)
[2018-08-03] MEDS: HYDROPHILIC CREAM 120 GM JAR TOPICAL SCH (08:49)
[2018-08-03] MEDS: ASPIRIN 325 MG TAB PO SCH (08:51)
[2018-08-03] MEDS: CHOLECALCIFEROL 1,000 UNIT TAB PO SCH (08:51)
[2018-08-03] MEDS: FUROSEMIDE 10 MG/ML 4 ML VIAL IV SCH ×2 (08:51→19:44)
[2018-08-03] MEDS: GABAPENTIN 300 MG CAP PO SCH ×4 (08:52→21:25)
[2018-08-03] MEDS: LACTOBACILLUS ACIDOPH & BULGAR 1 EACH PACKET PO SCH (08:52)
[2018-08-03] MEDS: guaiFENesin 600 MG TABLET.ER PO SCH ×2 (08:52→19:44)
[2018-08-03] MEDS: NAPROXEN 250 MG TAB PO SCH ×2 (08:53→19:45)
[2018-08-03] MEDS: METOPROLOL TARTRATE 12.5 MG TAB PO SCH ×2 (08:53→19:45)
[2018-08-03] MEDS: MISOPROSTOL 200 MCG TAB PO SCH ×4 (08:53→21:37)
[2018-08-03] MEDS: LORATADINE 10 MG TAB PO SCH (08:53)
[2018-08-03] MEDS: VENLAFAXINE HCL ER 75 MG CAP PO SCH (08:54)
[2018-08-03] MEDS: MORPHINE SULFATE ER 15 MG TABLET PO SCH ×3 (08:59→21:26)
[2018-08-03 10:36] LABS: Hemoglobin A1C 6.8 % (4.0-6.0)
[2018-08-03 11:27] LABS: Glucose,Whole Blood 152 mg/dL (75-99)
--- NOTE | 2018-08-03 11:54 | P.PN ---
Subjective Progress Note Date: 08/03/18 Principal diagnosis: Idiopathic pulmonary fibrosis Progress note dated 08/03/2018 58-year-old male well-known to me. He has a history of a biopsy-proven usual interstitial pneumonia/IPF. The patient's currently on anti-fibrotic therapy with OFEV. The patient is chronically hypoxemic and chronic hypoxemic respiratory failure. The patient was offered evaluation had a lung transplant center but refused. He is also a no code. Does not really want much done. The patient would agree to oxygen antibiotics bronchodilators steroids, etc. The patient's chest x-ray shows diffuse bilateral infiltrates, probable worsening of the infiltrates bilaterally. This could relate to worsening pulmonary fibrosis fluid overload and/or pneumonia, a combination of factors. The patient is currently on BiPAP. This seems to be helping a bit. Very very short of breath he's been now way chronically. Again in the past thought about a number different treatments and options but he does not want much done. He realizes that his prognosis is very poor. In addition, the patient has a history of hypertension DJD chronic back pain and hypoxemic respiratory failure. Also on this admission, the patient did have abnormal troponins possibly related to underlying cardiomyopathy and/or non-ST segment elevation myocardial infarction. I suspect it relates to supply demand mismatch more than anything else. Objective - Vital Signs Vital signs: Vital Signs Temp 97.0 F L 08/03/18 08:00 Pulse 94 08/03/18 11:01 Resp 21 08/03/18 08:00 BP 123/85 08/03/18 08:00 Pulse Ox 93 L 08/03/18 08:00 Intake & Output 08/02/18 08/03/18 08/03/18 18:59 06:59 18:59 Intake Total 379.067 790 100 Output Total 1000 Balance -620.933 790 100 Weight 107.5 kg Intake: Intake, IV Titration 184.067 Amount Heparin Sod,Pork in 0.45% 184.067 NaCl 25,000 unit In 0.45 % NaCl 1 500ml.bag @ 9 UNITS/KG/HR 20.08 mls/hr IV .Q24H [facility] Rx#: [id number] Oral 195 790 100 Output: Urine 1000 Other: Voiding Method Urinal Urinal # Voids 0 1 - Exam Profound in chronic shortness of breath, oriented, BiPAP mask in place. HEENT examination is grossly unremarkable. Mucous membranes are moist. No oral lesions. Neck supple. Full range of motion. No adenopathy thyromegaly or neck vein distention. Cardiovascular examination reveals regular rhythm rate. S1-S2 normal. No S3 or S4. No discernible murmur noted. Heart sounds are distant. Lungs reveal bibasilar Velcro crackles. He is restricted in his breathing. No rhonchi. No wheezes. Breath sounds equal bilaterally. Abdomen soft bowel sounds are heard. No masses or tenderness. Extremities are intact. Mild edema. No cyanosis or clubbing. Skin is without rash or lesion. Neurologic examination is brief but nonfocal. - Labs CBC & Chem 7: 08/03/18 06:35 08/03/18 06:35 Labs: Abnormal Lab Results - Last 24 Hours (Table) 08/02/18 08/02/18 08/02/18 Range/Units 11:56 16:17 20:41 WBC (3.8-10.6) k/uL Sodium (137-145) mmol/L Chloride (98-107) mmol/L Carbon Dioxide (22-30) mmol/L BUN (9-20) mg/dL Glucose (74-99) mg/dL POC Glucose (mg/dL) 128 H 130 H 136 H (75-99) mg/dL ALT (21-72) U/L Total Protein (6.3-8.2) g/dL Albumin (3.5-5.0) g/dL 08/03/18 08/03/18 08/03/18 Range/Units 06:17 06:35 06:35 WBC 15.8 H (3.8-10.6) k/uL Sodium 136 L (137-145) mmol/L Chloride 94 L (98-107) mmol/L Carbon Dioxide 31 H (22-30) mmol/L BUN 35 H (9-20) mg/dL Glucose 165 H (74-99) mg/dL POC Glucose (mg/dL) 175 H (75-99) mg/dL ALT 96 H (21-72) U/L Total Protein 6.2 L (6.3-8.2) g/dL Albumin 3.3 L (3.5-5.0) g/dL 08/03/18 Range/Units 11:22 WBC (3.8-10.6) k/uL Sodium (137-145) mmol/L Chloride (98-107) mmol/L Carbon Dioxide (22-30) mmol/L BUN (9-20) mg/dL Glucose (74-99) mg/dL POC Glucose (mg/dL) 152 H (75-99) mg/dL ALT (21-72) U/L Total Protein (6.3-8.2) g/dL Albumin (3.5-5.0) g/dL Microbiology - Last 24 Hours (Table) 08/01/18 17:52 Blood Culture - Preliminary Blood No Growth after 24 hours Assessment and Plan Assessment: Assessment Acute on chronic hypoxemic respiratory failure secondary to severe biopsy- proven pulmonary fibrosis/usual interstitial pneumonia. This condition might be worsened by fluid overload and/or pneumonia. Elevated troponins, likely related to supply demand mismatch rather than myocardial infarction History of hypertension History of osteoarthritis Chronic back pain. Plan: Plan dated 08/03/2018 Labs x-rays a medications are all reviewed. Zosyn was added as an antibiotic. It's added empirically. The patient may or may not have pneumonia. White count is 15.8 hemoglobin 13.2 hematocrit 42.2 and platelet count 245,000. Sodium 136 potassium 4.1 chloride is 94 CO2 31 BUN and creatinine were 35 and 1.05. The patient is maintained on all the appropriate medications including breathing treatments, diuretics, mucolytics, steroids, and now antibiotics. Prognosis is poor. The patient is a no code. Time with Patient: Less than 30
[2018-08-03] MEDS: MULTIVITAMINS, THERA 1 EACH TAB PO SCH (12:13)
--- NOTE | 2018-08-03 14:14 | P.PN ---
Subjective Mr. Rich is seen and examined resting comfortably in bed with Bipap in place. Past medical history significant for pulmonary fibrosis, COPD, chronic hypoxic respiratory failure, hypertension and osteoarthritis. He complains of tight sensation in this chest when he takes a deep breath. He denies shortness of breath unless he removes the bipap to eat, then he feels short of breath on nasal cannula. Denies palpitations or dizziness. Blood pressure 123/94 heart rate 108 afebrile maintaining oxygen saturation on BiPAP. Laboratory data reviewed, WBC 15.8, hemoglobin 13.2, platelets 245, sodium 136, potassium 4.1, creatinine 1.05. Currently maintained on Lasix 20 mg twice a day, IV antibiotics and IV steroids. Objective - Vital Signs Vital signs: Vital Signs Temp 97.0 F L 08/03/18 08:00 Pulse 108 H 08/03/18 12:00 Resp 19 08/03/18 12:00 BP 123/94 08/03/18 12:00 Pulse Ox 98 08/03/18 12:00 Intake & Output 08/02/18 08/03/18 08/03/18 18:59 06:59 18:59 Intake Total 379.067 790 220 Output Total 1000 500 Balance -620.933 790 -280 Weight 107.5 kg Intake: Intake, IV Titration 184.067 Amount Heparin Sod,Pork in 0.45% 184.067 NaCl 25,000 unit In 0.45 % NaCl 1 500ml.bag @ 9 UNITS/KG/HR 20.08 mls/hr IV .Q24H [facility] Rx#: [id number] Oral 195 790 220 Output: Urine 1000 500 Other: Voiding Method Urinal Urinal # Voids 0 1 - Exam GENERAL: Well-appearing, well-nourished and in no acute distress. NECK: Supple without JVD or thyromegaly. LUNGS: Breath sounds clear to auscultation bilaterally. Respiration equal and unlabored. No wheezes, rales or rhonchi. Diminished bilaterally. HEART: Regular rate and rhythm without murmurs, rubs or gallops. S1 and S2 heard. EXTREMITIES: Normal range of motion, trace bilateral lower extremity edema. No clubbing or cyanosis. Peripheral pulses intact. - Labs CBC & Chem 7: 08/03/18 06:35 08/03/18 06:35 Labs: Abnormal Lab Results - Last 24 Hours (Table) 08/02/18 08/02/18 08/03/18 Range/Units 16:17 20:41 06:17 WBC (3.8-10.6) k/uL Sodium (137-145) mmol/L Chloride (98-107) mmol/L Carbon Dioxide (22-30) mmol/L BUN (9-20) mg/dL Glucose (74-99) mg/dL POC Glucose (mg/dL) 130 H 136 H 175 H (75-99) mg/dL ALT (21-72) U/L Total Protein (6.3-8.2) g/dL Albumin (3.5-5.0) g/dL 08/03/18 08/03/18 08/03/18 Range/Units 06:35 06:35 11:22 WBC 15.8 H (3.8-10.6) k/uL Sodium 136 L (137-145) mmol/L Chloride 94 L (98-107) mmol/L Carbon Dioxide 31 H (22-30) mmol/L BUN 35 H (9-20) mg/dL Glucose 165 H (74-99) mg/dL POC Glucose (mg/dL) 152 H (75-99) mg/dL ALT 96 H (21-72) U/L Total Protein 6.2 L (6.3-8.2) g/dL Albumin 3.3 L (3.5-5.0) g/dL Microbiology - Last 24 Hours (Table) 08/01/18 17:52 Blood Culture - Preliminary Blood No Growth after 24 hours Assessment and Plan Assessment: ASSESSMENT Mild troponin elevation secondary to acute hypoxic respiratory failure secondary to underlying interstitial edema with possibility of pneumonia Acute exacerbation chronic diastolic dysfunction Hypertension Pulmonary fibrosis Hypertension Leukocytosis PLAN Continue current medical regimen. IV diuresis has brought him down 4 kg since admission. Ongoing management per pulmonary team. Further recommendations to follow based on clinical course. Nurse Practitioner note has been reviewed, I agree with a documented findings and plan of care. Patient was seen and examined.
--- NOTE | 2018-08-03 14:54 | P.PN ---
Subjective 52-year-old gentleman with interstitial pulmonary fibrosis uses anywhere between 5-7 L of oxygen at home came in with complaints compensative shortness of breath patient is presently on BiPAP there is concern about right lower lobe pneumonia because of which patient was started on Zosyn by pulmonary. Patient' s crackles in bilateral lower lung bases although improved. Patient is still complaining of significant shortness of breath. Constitutional: Denied any fatigue denied any fever. Cardio vascular: denied any chest pain, palpitations Gastrointestinal denied any nausea vomiting Pulmonary: As mentioned in HPI Neurologic denied any new focal deficits Objective - Vital Signs Vital signs: Vital Signs Temp 97.0 F L 08/03/18 08:00 Pulse 108 H 08/03/18 12:00 Resp 19 08/03/18 12:00 BP 123/94 08/03/18 12:00 Pulse Ox 98 08/03/18 12:00 Intake & Output 08/02/18 08/03/18 08/03/18 18:59 06:59 18:59 Intake Total 379.067 790 220 Output Total 1000 500 Balance -620.933 790 -280 Weight 107.5 kg Intake: Intake, IV Titration 184.067 Amount Heparin Sod,Pork in 0.45% 184.067 NaCl 25,000 unit In 0.45 % NaCl 1 500ml.bag @ 9 UNITS/KG/HR 20.08 mls/hr IV .Q24H [facility] Rx#: [id number] Oral 195 790 220 Output: Urine 1000 500 Other: Voiding Method Urinal Urinal # Voids 0 1 - Exam PHYSICAL EXAMINATION: GENERAL: The patient is alert and oriented x3, not in any acute distress. Well developed, well nourished. HEENT: Pupils are round and equally reacting to light. EOMI. No scleral icterus. No conjunctival pallor. Normocephalic, atraumatic. No pharyngeal erythema. No thyromegaly. CARDIOVASCULAR: S1 and S2 present. No murmurs, rubs, or gallops. PULMONARY: Bibasilar crackles improved ABDOMEN: Soft, nontender, nondistended, normoactive bowel sounds. No palpable organomegaly. MUSCULOSKELETAL: No joint swelling or deformity. EXTREMITIES: No cyanosis, clubbing, or pedal edema. NEUROLOGICAL: Gross neurological examination did not reveal any focal deficits. SKIN: No rashes. - Labs CBC & Chem 7: 08/03/18 06:35 08/03/18 06:35 Labs: Abnormal Lab Results - Last 24 Hours (Table) 08/02/18 08/02/18 08/03/18 Range/Units 16:17 20:41 06:17 WBC (3.8-10.6) k/uL Sodium (137-145) mmol/L Chloride (98-107) mmol/L Carbon Dioxide (22-30) mmol/L BUN (9-20) mg/dL Glucose (74-99) mg/dL POC Glucose (mg/dL) 130 H 136 H 175 H (75-99) mg/dL ALT (21-72) U/L Total Protein (6.3-8.2) g/dL Albumin (3.5-5.0) g/dL 08/03/18 08/03/18 08/03/18 Range/Units 06:35 06:35 11:22 WBC 15.8 H (3.8-10.6) k/uL Sodium 136 L (137-145) mmol/L Chloride 94 L (98-107) mmol/L Carbon Dioxide 31 H (22-30) mmol/L BUN 35 H (9-20) mg/dL Glucose 165 H (74-99) mg/dL POC Glucose (mg/dL) 152 H (75-99) mg/dL ALT 96 H (21-72) U/L Total Protein 6.2 L (6.3-8.2) g/dL Albumin 3.3 L (3.5-5.0) g/dL Microbiology - Last 24 Hours (Table) 08/01/18 17:52 Blood Culture - Preliminary Blood No Growth after 24 hours Assessment and Plan Plan: -Acute on chronic hypoxic respiratory failure secondary to pulmonary fibrosis patient was started on systemic steroids. Possibility of right lower lobe pneumonia for which patient was started on Zosyn -Cannot rule out chronic diastolic dysfunction with acute exacerbation ration is on oral Lasix at the 20 twice a day -Mildly elevated troponin secondary to hypoxemia cardiology evaluated the patient heparin was discontinued. -Hypertension -Osteoarthritis
[2018-08-03] MEDS: PIPERACILLIN-TAZOBACTAM 3.375 GM in DEXTROSE/WATER 1 50ML.BAG IVPB SCH ×2 (15:22→22:58)
[2018-08-03 17:37] LABS: Glucose,Whole Blood 159 mg/dL (75-99)
[2018-08-03] MEDS: POLYETHYLENE GLYCOL 3350 17 GM POWD.PACK PO SCH (18:11)
[2018-08-03] MEDS: LISINOPRIL 20 MG TAB PO SCH (19:45)
[2018-08-03 21:17] LABS: Glucose,Whole Blood 142 mg/dL (75-99)
[2018-08-04 06:01] LABS: Glucose,Whole Blood 175 mg/dL (75-99)
[2018-08-04] MEDS: INSULIN ASPART 100 UNIT/ML 1 ML 10 ML VIAL SQ SCH ×4 (06:09→22:19)
[2018-08-04] MEDS: methylPREDNISolone SOD SUCCI 125 MG/2 ML VIAL IV SCH ×4 (06:09→23:32)
[2018-08-04] MEDS: Nintedanib Esylate [Ofev] 150 MG PO SCH ×2 (06:13→17:11)
[2018-08-04 07:48] LABS: Calcium 9.3 mg/dL (8.4-10.2); Potassium 4.1 mmol/L (3.5-5.1)
[2018-08-04 07:50] LABS: HCT 42.5 % (39.0-53.0); HGB 13.5 gm/dL (13.0-17.5); MCH 29.1 pg (25.0-35.0); MCHC 31.7 g/dL (31.0-37.0); MCV 91.8 fL (80.0-100.0); Mean Platelet Volume 6.9; Platelet Count 255 k/uL (150-450); RBC 4.63 m/uL (4.30-5.90); WBC 15.7 k/uL (3.8-10.6)
[2018-08-04] MEDS: IPRATROPIUM-ALBUTEROL 3 ML NEB INHALATION SCH ×4 (08:40→20:34)
[2018-08-04] MEDS: HYDROPHILIC CREAM 120 GM JAR TOPICAL SCH (08:48)
[2018-08-04] MEDS: DOCUSATE 100 MG CAP PO SCH ×2 (08:48→22:21)
[2018-08-04] MEDS: PIPERACILLIN-TAZOBACTAM 3.375 GM in DEXTROSE/WATER 1 50ML.BAG IVPB SCH ×3 (08:49→23:31)
[2018-08-04] MEDS: FUROSEMIDE 10 MG/ML 4 ML VIAL IV SCH ×2 (08:50→22:21)
[2018-08-04] MEDS: GABAPENTIN 300 MG CAP PO SCH ×4 (09:57→22:20)
[2018-08-04] MEDS: ASPIRIN 81 MG PO SCH (09:57)
[2018-08-04] MEDS: CHOLECALCIFEROL 1,000 UNIT TAB PO SCH (09:57)
[2018-08-04] MEDS: LORATADINE 10 MG TAB PO SCH (09:58)
[2018-08-04] MEDS: METOPROLOL TARTRATE 12.5 MG TAB PO SCH (09:58)
[2018-08-04] MEDS: guaiFENesin 600 MG TABLET.ER PO SCH ×2 (09:58→22:22)
[2018-08-04] MEDS: LACTOBACILLUS ACIDOPH & BULGAR 1 EACH PACKET PO SCH (09:58)
[2018-08-04] MEDS: MISOPROSTOL 200 MCG TAB PO SCH ×4 (09:58→22:22)
[2018-08-04] MEDS: MORPHINE SULFATE ER 15 MG TABLET PO SCH ×3 (09:59→22:19)
[2018-08-04] MEDS: VENLAFAXINE HCL ER 75 MG CAP PO SCH (09:59)
--- NOTE | 2018-08-04 11:31 | P.PN ---
Subjective Progress Note Date: 08/04/18 Principal diagnosis: Idiopathic pulmonary fibrosis Progress note dated 08/03/2018 58-year-old male well-known to me. He has a history of a biopsy-proven usual interstitial pneumonia/IPF. The patient's currently on anti-fibrotic therapy with OFEV. The patient is chronically hypoxemic and chronic hypoxemic respiratory failure. The patient was offered evaluation had a lung transplant center but refused. He is also a no code. Does not really want much done. The patient would agree to oxygen antibiotics bronchodilators steroids, etc. The patient's chest x-ray shows diffuse bilateral infiltrates, probable worsening of the infiltrates bilaterally. This could relate to worsening pulmonary fibrosis fluid overload and/or pneumonia, a combination of factors. The patient is currently on BiPAP. This seems to be helping a bit. Very very short of breath he's been now way chronically. Again in the past thought about a number different treatments and options but he does not want much done. He realizes that his prognosis is very poor. In addition, the patient has a history of hypertension DJD chronic back pain and hypoxemic respiratory failure. Also on this admission, the patient did have abnormal troponins possibly related to underlying cardiomyopathy and/or non-ST segment elevation myocardial infarction. I suspect it relates to supply demand mismatch more than anything else. Progress note dated 08/04/2018 58-year-old male with history of biopsy-proven idiopathic pulmonary fibrosis/ usual interstitial pneumonia. The patient's currently on anti-fibrotic therapy with OFEV, but has developed worsening hypoxemic respiratory failure. The patient's pretty much BiPAP dependent. When not on BiPAP, he is on high flow oxygen. Spelled meals. I previously did offer him an evaluation in the lung transplant center here in [place] but he refused. He apparently wants to go to the [facility]. He apparently feels like that would be the best place for him. There, he will ask for hospice referral. In addition to severe pulmonary fibrosis, he is getting history of chronic back pain, hypertension, DJD, hypoxemic respiratory failure and possible cardiac disease. His troponins were elevated on admission. Current labs include a white count of 15.7, normal hemoglobin and hematocrit and platelet count. Sodium 136 potassium 4.1 chloride is 91 CO2 33 anion gap 12, with a BUN and creatinine of 41 and 1.10. Microbiologic studies are thus far negative. Objective - Vital Signs Vital signs: Vital Signs Temp 97.1 F L 08/04/18 08:00 Pulse 112 H 08/04/18 08:58 Resp 27 H 08/04/18 08:00 BP 137/91 08/04/18 08:00 Pulse Ox 99 08/04/18 04:00 Intake & Output 08/03/18 08/04/18 08/04/18 18:59 06:59 18:59 Intake Total 460 20 Output Total 500 925 Balance -40 -905 Weight 107.6 kg Intake: IV 20 0.9 20 Oral 460 Output: Urine 500 925 Other: Voiding Method Urinal # Voids 1 - Exam Profound, chronic shortness of breath, conversational dyspnea, with high flow nasal cannula in place. HEENT examination is grossly unremarkable. Mucous membranes are moist. No oral lesions. Neck supple. Full range of motion. No adenopathy thyromegaly or neck vein distention. Cardiovascular examination reveals regular rhythm rate. S1-S2 normal. No S3 or S4. No discernible murmur noted. Heart sounds are distant. Heart rate is 105. Lungs reveal bibasilar Velcro crackles. He is restricted in his breathing. No rhonchi. No wheezes. Breath sounds equal bilaterally. Abdomen soft bowel sounds are heard. No masses or tenderness. Extremities are intact. Mild edema. No cyanosis or clubbing. Skin is without rash or lesion. Neurologic examination is brief but nonfocal. - Labs CBC & Chem 7: 08/04/18 06:59 08/04/18 06:59 Labs: Abnormal Lab Results - Last 24 Hours (Table) 08/02/18 08/03/18 08/03/18 Range/Units 01:04 11:22 17:13 WBC (3.8-10.6) k/uL Sodium (137-145) mmol/L Chloride (98-107) mmol/L Carbon Dioxide (22-30) mmol/L BUN (9-20) mg/dL Glucose (74-99) mg/dL POC Glucose (mg/dL) 152 H 159 H (75-99) mg/dL Hemoglobin A1c 6.8 H (4.0-6.0) % 08/03/18 08/04/18 08/04/18 Range/Units 21:15 05:59 06:59 WBC 15.7 H (3.8-10.6) k/uL Sodium (137-145) mmol/L Chloride (98-107) mmol/L Carbon Dioxide (22-30) mmol/L BUN (9-20) mg/dL Glucose (74-99) mg/dL POC Glucose (mg/dL) 142 H 175 H (75-99) mg/dL Hemoglobin A1c (4.0-6.0) % 08/04/18 Range/Units 06:59 WBC (3.8-10.6) k/uL Sodium 136 L (137-145) mmol/L Chloride 91 L (98-107) mmol/L Carbon Dioxide 33 H (22-30) mmol/L BUN 41 H (9-20) mg/dL Glucose 156 H (74-99) mg/dL POC Glucose (mg/dL) (75-99) mg/dL Hemoglobin A1c (4.0-6.0) % Microbiology - Last 24 Hours (Table) 08/01/18 17:52 Blood Culture - Preliminary Blood No Growth after 48 hours Assessment and Plan Assessment: Assessment Acute on chronic hypoxemic respiratory failure secondary to severe biopsy- proven pulmonary fibrosis/usual interstitial pneumonia. This condition might be worsened by fluid overload and/or pneumonia. Elevated troponins, likely related to supply demand mismatch rather than myocardial infarction History of hypertension History of osteoarthritis Chronic back pain. Plan: Plan dated 08/03/2018 Labs x-rays a medications are all reviewed. Zosyn was added as an antibiotic. It's added empirically. The patient may or may not have pneumonia. White count is 15.8 hemoglobin 13.2 hematocrit 42.2 and platelet count 245,000. Sodium 136 potassium 4.1 chloride is 94 CO2 31 BUN and creatinine were 35 and 1.05. The patient is maintained on all the appropriate medications including breathing treatments, diuretics, mucolytics, steroids, and now antibiotics. Prognosis is poor. The patient is a no code. Plan dated 08/04/2018 Microbiologic studies are thus far negative. Chest x-ray has been evaluated. Laboratory data has been reviewed. Medications are reviewed. Everything started seems to be appropriate. He is getting breathing treatments. In addition, this patient is getting IV Solu-Medrol and antibiotics in the form of Zosyn. Overall prognosis remains poor. We'll continue to follow. He is a no code. The patient will likely end up at the [facility]. There, he states he would like to go hospice. Time with Patient: Greater than 30
[2018-08-04 11:46] LABS: Glucose,Whole Blood 175 mg/dL (75-99)
[2018-08-04] MEDS: NAPROXEN 250 MG TAB PO SCH ×2 (12:12→22:21)
[2018-08-04] MEDS: MULTIVITAMINS, THERA 1 EACH TAB PO SCH (12:13)
--- NOTE | 2018-08-04 12:39 | P.PN ---
Subjective 52-year-old gentleman with interstitial pulmonary fibrosis uses anywhere between 5-7 L of oxygen at home came in with complaints compensative shortness of breath patient is presently on BiPAP there is concern about right lower lobe pneumonia because of which patient was started on Zosyn by pulmonary. Patient' s crackles in bilateral lower lung bases although improved. Patient is still complaining of significant shortness of breath. 08/04/2018 No cigarette in overnight events respiratory status improved a little bit but still remains on BiPAP on and off overall prognosis is extremely poor PT and OT evaluation today. Constitutional: Denied any fatigue denied any fever. Cardio vascular: denied any chest pain, palpitations Gastrointestinal denied any nausea vomiting Pulmonary: As mentioned in HPI Neurologic denied any new focal deficits Objective - Vital Signs Vital signs: Vital Signs Temp 97.1 F L 08/04/18 08:00 Pulse 92 08/04/18 12:21 Resp 18 08/04/18 12:00 BP 120/87 08/04/18 12:00 Pulse Ox 97 08/04/18 12:00 Intake & Output 08/03/18 08/04/18 08/04/18 18:59 06:59 18:59 Intake Total 460 20 120 Output Total 500 925 300 Balance -40 -905 -180 Weight 107.6 kg Intake: IV 20 0.9 20 Oral 460 120 Output: Urine 500 925 300 Other: Voiding Method Urinal # Voids 1 # Bowel Movements 0 - Exam PHYSICAL EXAMINATION: GENERAL: The patient is alert and oriented x3, not in any acute distress. Well developed, well nourished. HEENT: Pupils are round and equally reacting to light. EOMI. No scleral icterus. No conjunctival pallor. Normocephalic, atraumatic. No pharyngeal erythema. No thyromegaly. CARDIOVASCULAR: S1 and S2 present. No murmurs, rubs, or gallops. PULMONARY: Bibasilar crackles, fairly but good air entry bilateral lung milner ABDOMEN: Soft, nontender, nondistended, normoactive bowel sounds. No palpable organomegaly. MUSCULOSKELETAL: No joint swelling or deformity. EXTREMITIES: No cyanosis, clubbing, or pedal edema. NEUROLOGICAL: Gross neurological examination did not reveal any focal deficits. SKIN: No rashes. - Labs CBC & Chem 7: 08/04/18 06:59 08/04/18 06:59 Labs: Abnormal Lab Results - Last 24 Hours (Table) 08/02/18 08/03/18 08/03/18 Range/Units 01:04 17:13 21:15 WBC (3.8-10.6) k/uL Sodium (137-145) mmol/L Chloride (98-107) mmol/L Carbon Dioxide (22-30) mmol/L BUN (9-20) mg/dL Glucose (74-99) mg/dL POC Glucose (mg/dL) 159 H 142 H (75-99) mg/dL Hemoglobin A1c 6.8 H (4.0-6.0) % 08/04/18 08/04/18 08/04/18 Range/Units 05:59 06:59 06:59 WBC 15.7 H (3.8-10.6) k/uL Sodium 136 L (137-145) mmol/L Chloride 91 L (98-107) mmol/L Carbon Dioxide 33 H (22-30) mmol/L BUN 41 H (9-20) mg/dL Glucose 156 H (74-99) mg/dL POC Glucose (mg/dL) 175 H (75-99) mg/dL Hemoglobin A1c (4.0-6.0) % 08/04/18 Range/Units 11:36 WBC (3.8-10.6) k/uL Sodium (137-145) mmol/L Chloride (98-107) mmol/L Carbon Dioxide (22-30) mmol/L BUN (9-20) mg/dL Glucose (74-99) mg/dL POC Glucose (mg/dL) 175 H (75-99) mg/dL Hemoglobin A1c (4.0-6.0) % Microbiology - Last 24 Hours (Table) 08/01/18 17:52 Blood Culture - Preliminary Blood No Growth after 48 hours Assessment and Plan Plan: -Acute on chronic hypoxic respiratory failure secondary to pulmonary fibrosis patient was started on systemic steroids. Possibility of right lower lobe pneumonia for which patient was started on Zosyn -Cannot rule out chronic diastolic dysfunction with acute exacerbation ration is on oral Lasix at the 20 twice a day -Mildly elevated troponin secondary to hypoxemia cardiology evaluated the patient heparin was discontinued. -Hypertension -Osteoarthritis
[2018-08-04] MEDS: SPIRONOLACTONE 25 MG TAB PO SCH (13:26)
--- NOTE | 2018-08-04 16:52 | P.PN ---
Subjective Progress Note Date: 08/04/18 This is a pleasant 58-year-old gentleman with past medical history significant for pulmonary fibrosis, COPD, chronic hypoxic respiratory failure, hypertension and osteoarthritis. Upon examination, patient is resting comfortably in bed. He feels his breathing is better today and is using his BiPAP last. Denies chest discomfort, palpitations or dizziness. Currently maintained on Lasix 20 mg twice a day, IV antibiotics and IV steroids. Laboratory values today shown BUN 41, creatinine 1.1 and a white blood cell count of 15,700. Objective - Vital Signs Vital signs: Vital Signs Temp 97.5 F L 08/04/18 16:00 Pulse 92 08/04/18 16:15 Resp 24 08/04/18 16:00 BP 152/96 08/04/18 16:00 Pulse Ox 100 08/04/18 16:00 Intake & Output 08/03/18 08/04/18 08/04/18 18:59 06:59 18:59 Intake Total 460 20 240 Output Total 467 603 5534 Balance -40 -905 -910 Weight 107.6 kg Intake: IV 20 0.9 20 Oral 460 240 Output: Urine 083 512 1027 Other: Voiding Method Urinal # Voids 1 1 # Bowel Movements 0 - Exam PHYSICAL EXAMINATION: HEENT: [Head is atraumatic, normocephalic. Pupils equal, round. Neck is supple. There is no elevated jugular venous pressure.] HEART EXAMINATION: [Heart sounds regular, S1 and S2 normal. No murmur or gallop heard.] CHEST EXAMINATION:[ Lungs are clear to auscultation and precussion. No chest wall tenderness is noted on palpation or with deep breathing.] ABDOMEN: [ Soft, nontender. Bowel sounds are heard. No organomegaly noted]. EXTREMITIES:[ peripheral pulses intact with evidence of trace peripheral edema and no calf tenderness noted]. NEUROLOGIC [patient is awake, alert and oriented x3.] . - Labs CBC & Chem 7: 08/04/18 06:59 08/04/18 06:59 Labs: Abnormal Lab Results - Last 24 Hours (Table) 08/03/18 08/03/18 08/04/18 Range/Units 17:13 21:15 05:59 WBC (3.8-10.6) k/uL Sodium (137-145) mmol/L Chloride (98-107) mmol/L Carbon Dioxide (22-30) mmol/L BUN (9-20) mg/dL Glucose (74-99) mg/dL POC Glucose (mg/dL) 159 H 142 H 175 H (75-99) mg/dL 08/04/18 08/04/18 08/04/18 Range/Units 06:59 06:59 11:36 WBC 15.7 H (3.8-10.6) k/uL Sodium 136 L (137-145) mmol/L Chloride 91 L (98-107) mmol/L Carbon Dioxide 33 H (22-30) mmol/L BUN 41 H (9-20) mg/dL Glucose 156 H (74-99) mg/dL POC Glucose (mg/dL) 175 H (75-99) mg/dL Microbiology - Last 24 Hours (Table) 08/01/18 17:52 Blood Culture - Preliminary Blood No Growth after 48 hours Assessment and Plan Assessment: #1 mild troponin elevation secondary to acute hypoxic respiratory failure secondary to underlying interstitial edema with possible pneumonia #2 acute on chronic diastolic congestive heart failure #3 hypertension #4 pulmonary fibrosis Plan: From cardiology's perspective, patient is slightly tachycardic therefore we will increase metoprolol to 25 mg by mouth twice a day. We will add Aldactone 25 mg daily. Will monitor electrolytes and renal function. We will continue to follow the patient provide further recommendations accordingly. DOCUMENTATION NURSE note has been reviewed, I agree with a documented findings and plan of care. Patient was seen and examined.
[2018-08-04] MEDS: POLYETHYLENE GLYCOL 3350 17 GM POWD.PACK PO SCH (17:14)
[2018-08-04 17:28] LABS: Glucose,Whole Blood 133 mg/dL (75-99)
[2018-08-04 20:53] LABS: Glucose,Whole Blood 185 mg/dL (75-99)
[2018-08-04] MEDS: LISINOPRIL 20 MG TAB PO SCH (22:20)
[2018-08-04] MEDS: METOPROLOL TARTRATE 25 MG TAB PO SCH (22:25)
[2018-08-05 06:05] LABS: Glucose,Whole Blood 168 mg/dL (75-99)
[2018-08-05] MEDS: INSULIN ASPART 100 UNIT/ML 1 ML 10 ML VIAL SQ SCH ×4 (06:30→21:44)
[2018-08-05] MEDS: Nintedanib Esylate [Ofev] 150 MG PO SCH ×3 (06:31→18:36)
[2018-08-05] MEDS: methylPREDNISolone SOD SUCCI 125 MG/2 ML VIAL IV SCH ×4 (06:31→23:34)
[2018-08-05 06:52] LABS: HCT 49.5 % (39.0-53.0); HGB 15.7 gm/dL (13.0-17.5); MCH 29.4 pg (25.0-35.0); MCHC 31.7 g/dL (31.0-37.0); MCV 92.6 fL (80.0-100.0); Mean Platelet Volume 6.4; Platelet Count 313 k/uL (150-450); RBC 5.35 m/uL (4.30-5.90); RDW 15.2 % (11.5-15.5); WBC 18.6 k/uL (3.8-10.6)
[2018-08-05 07:07] LABS: Potassium 4.5 mmol/L (3.5-5.1)
[2018-08-05] MEDS: DOCUSATE 100 MG CAP PO SCH ×2 (07:56→21:44)
[2018-08-05] MEDS: HYDROPHILIC CREAM 120 GM JAR TOPICAL SCH (07:56)
[2018-08-05] MEDS: ASPIRIN 81 MG PO SCH (08:01)
[2018-08-05] MEDS: FUROSEMIDE 10 MG/ML 4 ML VIAL IV SCH (08:01)
[2018-08-05] MEDS: CHOLECALCIFEROL 1,000 UNIT TAB PO SCH (08:01)
[2018-08-05] MEDS: GABAPENTIN 300 MG CAP PO SCH ×4 (08:02→21:47)
[2018-08-05] MEDS: LORATADINE 10 MG TAB PO SCH (08:02)
[2018-08-05] MEDS: guaiFENesin 600 MG TABLET.ER PO SCH ×2 (08:02→21:44)
[2018-08-05] MEDS: MORPHINE SULFATE ER 15 MG TABLET PO SCH ×3 (08:02→21:48)
[2018-08-05] MEDS: METOPROLOL TARTRATE 25 MG TAB PO SCH ×2 (08:02→21:45)
[2018-08-05] MEDS: MISOPROSTOL 200 MCG TAB PO SCH ×4 (08:02→21:47)
[2018-08-05] MEDS: NAPROXEN 250 MG TAB PO SCH ×2 (08:03→21:48)
[2018-08-05] MEDS: SPIRONOLACTONE 25 MG TAB PO SCH (08:03)
[2018-08-05] MEDS: VENLAFAXINE HCL ER 75 MG CAP PO SCH (08:03)
[2018-08-05] MEDS: IPRATROPIUM-ALBUTEROL 3 ML NEB INHALATION SCH ×4 (08:04→20:27)
[2018-08-05] MEDS: PIPERACILLIN-TAZOBACTAM 3.375 GM in DEXTROSE/WATER 1 50ML.BAG IVPB SCH ×3 (09:52→23:34)
[2018-08-05] MEDS: LACTOBACILLUS ACIDOPH & BULGAR 1 EACH PACKET PO SCH (09:53)
[2018-08-05 12:00] LABS: Glucose,Whole Blood 163 mg/dL (75-99)
[2018-08-05] MEDS: MULTIVITAMINS, THERA 1 EACH TAB PO SCH (12:31)
--- NOTE | 2018-08-05 13:01 | P.PN ---
Subjective Progress Note Date: 08/05/18 58-year-old male patient with advanced pulmonary fibrosis/UIP/IPF confirmed through a thoracoscopic lung biopsy approximately 2 years ago. The patient has been progressively getting worse and has developed progressive hypoxic respiratory failure and he has been maintained on high flow oxygen at 67 L per minute nasal cannula on outpatient basis. The potential hospital because of worsening shortness of breath, dry cough and signs of respiratory failure. He has a DNR/DNI CODE STATUS. His proBNP level was significantly elevated and the patient had borderline troponin elevation to. The patient was subjected to diuretics and he is currently on 20 mg of IV Lasix every 12 hours. On today's blood work, his creatinine is up to 1.4. Also he is slightly better. It seems that he is getting gradually back to his baseline. No fever. No chills. Still on 7 L about 2 by nasal cannula. He likes his BiPAP and he was wondering whether BiPAP machine can be ordered for him on outpatient basis. I told the patient and unfortunately this may not be possible as this is not indicated for pulmonary fibrosis related to respiratory failure. Previous echo of the heart from 2016 showed an ejection fraction of 6065%. No other valvular abnormalities noted. No leukocytosis. Blood cultures been negative. The patient remains on bronchodilators [id number] with DuoNeb and IV Solu- Medrol and the patient is also on empiric antibiotic coverage with IV Zosyn. Objective - Vital Signs Vital signs: Vital Signs Temp 97.7 F 08/05/18 07:47 Pulse 76 08/05/18 12:10 Resp 20 08/05/18 12:00 BP 132/99 08/05/18 12:00 Pulse Ox 94 L 08/05/18 12:00 Intake & Output 08/04/18 08/05/18 08/05/18 18:59 06:59 18:59 Intake Total 480 85 236 Output Total 1450 800 650 Balance -970 -715 -414 Weight 105.7 kg Intake: IV 35 0.9 35 Intake, IV Titration 50 Amount Piperacillin-Tazobactam 3 50 .375 gm In Dextrose/Water 1 50ml.bag @ 12.5 mls/hr IVPB Q8HR REPLACED BY [facility] Rx#: [id number] Oral 480 236 Output: Urine 1450 800 650 Other: Voiding Method Urinal # Voids 1 # Bowel Movements 0 - Exam Gen. appearance the patient is a mild degree of respiratory distress even at rest. Not using excessive muscle breathing. Is on high flow oxygen for now Head exam was generally normal. There was no scleral icterus or corneal arcus. Mucous membranes were moist. Neck was supple and without jugular venous distension, thyromegaly, or carotid bruits. Carotids were easily palpable bilaterally. There was no adenopathy. Lungs sounds are diminished and the patient has coarse crackles in the mid and lower lung. Bilaterally and air air entry is diminished throughout the lung milner. Abdominal exam revealed normal bowel sounds. The abdomen was soft, non-tender, and without masses, organomegaly, or appreciable enlargement of the abdominal aorta. Examination of the extremities revealed easily palpable radial, femoral and pedal pulses. There was no cyanosis, clubbing or edema. Examination of the skin revealed no evidence of significant rashes, suspicious appearing nevi or other concerning lesions. Neurologically awake and alert and there is no focal neurological deficits. - Labs CBC & Chem 7: 08/05/18 06:02 08/05/18 06:02 Labs: Abnormal Lab Results - Last 24 Hours (Table) 08/04/18 08/04/18 08/05/18 Range/Units 17:03 20:52 06:02 WBC 18.6 H (3.8-10.6) k/uL Chloride (98-107) mmol/L Carbon Dioxide (22-30) mmol/L BUN (9-20) mg/dL Creatinine (0.66-1.25) mg/dL Glucose (74-99) mg/dL POC Glucose (mg/dL) 133 H 185 H (75-99) mg/dL 08/05/18 08/05/18 08/05/18 Range/Units 06:02 06:04 11:40 WBC (3.8-10.6) k/uL Chloride 92 L (98-107) mmol/L Carbon Dioxide 35 H (22-30) mmol/L BUN 47 H (9-20) mg/dL Creatinine 1.63 H (0.66-1.25) mg/dL Glucose 181 H (74-99) mg/dL POC Glucose (mg/dL) 168 H 163 H (75-99) mg/dL Microbiology - Last 24 Hours (Table) 08/01/18 17:52 Blood Culture - Preliminary Blood No Growth after 72 hours Assessment and Plan Plan: Assessment 1 IPF. The patient has idiopathic pulmonary fibrosis with UIP pathology confirmed on open lung biopsy and the patient has been maintained on Ofev on outpatient basis 2 acute on chronic hypoxic respiratory failure probably related to worsening of IPF/UIP, natural progression. No clear evidence of a superinfection. No clear evidence of a underlying heart failure. Echocardiogram from 2 years ago was within normal limits. BNP was slightly elevated and the patient was subjected to diuretics. The patient subsequently developed an acute kidney injury/renal azotemia related to diuresis 3 acute kidney injury, probably related to diuretics 4 troponin leak, questionable non-ST segment elevation myocardial infarction and cardiology on the case 5 significant limitation excess capacity secondary to IPF 6 DNR/DNI CODE STATUS 7 hypertension 8 osteoarthritis 9 previous history of pneumothorax 10 chronic back pain 11 chronic hypoxic respiratory failure secondary to above Plan We'll start tapering the steroids as of tomorrow. The patient is currently on IV Solu Medrol 60 mg every 6 hours and will switch him to oral prednisone as of tomorrow. Continue DuoNeb nebulized [id number]. Continue empiric antibiotic with IV Zosyn. The patient has developed an acute kidney injury in the creatinine is up to 1.6 and the patient will be taken off diuretics. We'll continue to follow the electrodes in the morning. Wean off FiO2 as possible and the patient is currently on 6 L of oxygen by nasal cannula.
--- NOTE | 2018-08-05 14:35 | P.PN ---
Subjective Progress Note Date: 08/05/18 This is a pleasant 58-year-old gentleman with past medical history significant for pulmonary fibrosis, COPD, chronic hypoxic respiratory failure, hypertension and osteoarthritis. Upon examination, patient is resting comfortably in bed. He feels his breathing is better today and is using his BiPAP last. Denies chest discomfort, palpitations or dizziness. Currently maintained on Lasix 20 mg twice a day, IV antibiotics and IV steroids. Laboratory values today shown BUN 47, creatinine 1.63 which is up from yesterday. and a white blood cell count of 18,600. Patient was started on Aldactone yesterday. Objective - Vital Signs Vital signs: Vital Signs Temp 97.7 F 08/05/18 07:47 Pulse 76 08/05/18 12:10 Resp 20 08/05/18 12:00 BP 132/99 08/05/18 12:00 Pulse Ox 94 L 08/05/18 12:00 Intake & Output 08/04/18 08/05/18 08/05/18 18:59 06:59 18:59 Intake Total 480 85 236 Output Total 1450 800 650 Balance -970 -715 -414 Weight 105.7 kg Intake: IV 35 0.9 35 Intake, IV Titration 50 Amount Piperacillin-Tazobactam 3 50 .375 gm In Dextrose/Water 1 50ml.bag @ 12.5 mls/hr IVPB Q8HR [facility] Rx#: [id number] Oral 480 236 Output: Urine 1450 800 650 Other: Voiding Method Urinal # Voids 1 # Bowel Movements 0 - Exam PHYSICAL EXAMINATION: HEENT: [Head is atraumatic, normocephalic. Pupils equal, round. Neck is supple. There is no elevated jugular venous pressure.] HEART EXAMINATION: [Heart sounds regular, S1 and S2 normal. No murmur or gallop heard.] CHEST EXAMINATION:[ Lungs are clear to auscultation and precussion. No chest wall tenderness is noted on palpation or with deep breathing.] ABDOMEN: [ Soft, nontender. Bowel sounds are heard. No organomegaly noted]. EXTREMITIES:[ peripheral pulses intact with evidence of trace peripheral edema and no calf tenderness noted]. NEUROLOGIC [patient is awake, alert and oriented x3.] . - Labs CBC & Chem 7: 08/05/18 06:02 08/05/18 06:02 Labs: Abnormal Lab Results - Last 24 Hours (Table) 08/04/18 08/04/18 08/05/18 Range/Units 17:03 20:52 06:02 WBC 18.6 H (3.8-10.6) k/uL Chloride (98-107) mmol/L Carbon Dioxide (22-30) mmol/L BUN (9-20) mg/dL Creatinine (0.66-1.25) mg/dL Glucose (74-99) mg/dL POC Glucose (mg/dL) 133 H 185 H (75-99) mg/dL 08/05/18 08/05/18 08/05/18 Range/Units 06:02 06:04 11:40 WBC (3.8-10.6) k/uL Chloride 92 L (98-107) mmol/L Carbon Dioxide 35 H (22-30) mmol/L BUN 47 H (9-20) mg/dL Creatinine 1.63 H (0.66-1.25) mg/dL Glucose 181 H (74-99) mg/dL POC Glucose (mg/dL) 168 H 163 H (75-99) mg/dL Microbiology - Last 24 Hours (Table) 08/01/18 17:52 Blood Culture - Preliminary Blood No Growth after 72 hours Assessment and Plan Assessment: #1 mild troponin elevation secondary to acute hypoxic respiratory failure secondary to underlying interstitial edema with possible pneumonia #2 acute on chronic diastolic congestive heart failure #3 hypertension #4 pulmonary fibrosis Plan: From cardiology's perspective, continue current dose of metoprolol. Hold Aldactone and recheck renal function tomorrow. From our perspective, patient may be transferred to a [facility] floor. Will monitor electrolytes and renal function. Further recommendations to follow. SURVEILLANCE SENSOR OFFICER note has been reviewed, I agree with a documented findings and plan of care. Patient was seen and examined.
[2018-08-05 17:01] LABS: Glucose,Whole Blood 135 mg/dL (75-99)
[2018-08-05] MEDS: POLYETHYLENE GLYCOL 3350 17 GM POWD.PACK PO SCH (18:30)
[2018-08-05 21:09] LABS: Glucose,Whole Blood 173 mg/dL (75-99)
[2018-08-05] MEDS: LISINOPRIL 20 MG TAB PO SCH (21:44)
[2018-08-06 06:14] LABS: Glucose,Whole Blood 109 mg/dL (75-99)
[2018-08-06] MEDS: INSULIN ASPART 100 UNIT/ML 1 ML 10 ML VIAL SQ SCH ×2 (06:16→15:54)
[2018-08-06] MEDS: methylPREDNISolone SOD SUCCI 125 MG/2 ML VIAL IV SCH ×2 (06:26→14:57)
[2018-08-06] MEDS: Nintedanib Esylate [Ofev] 150 MG PO SCH (06:27)
[2018-08-06] MEDS: IPRATROPIUM-ALBUTEROL 3 ML NEB INHALATION SCH ×3 (08:21→16:06)
[2018-08-06 08:25] VITALS: RESP 18
[2018-08-06] MEDS: CHOLECALCIFEROL 1,000 UNIT TAB PO SCH (09:15)
[2018-08-06] MEDS: ASPIRIN 81 MG PO SCH (09:15)
[2018-08-06] MEDS: HYDROPHILIC CREAM 120 GM JAR TOPICAL SCH (09:16)
[2018-08-06] MEDS: GABAPENTIN 300 MG CAP PO SCH ×2 (09:16→16:05)
[2018-08-06] MEDS: METOPROLOL TARTRATE 25 MG TAB PO SCH (09:17)
[2018-08-06] MEDS: guaiFENesin 600 MG TABLET.ER PO SCH (09:17)
[2018-08-06] MEDS: LORATADINE 10 MG TAB PO SCH (09:17)
[2018-08-06] MEDS: NAPROXEN 250 MG TAB PO SCH (09:18)
[2018-08-06] MEDS: VENLAFAXINE HCL ER 75 MG CAP PO SCH (09:18)
[2018-08-06] MEDS: PIPERACILLIN-TAZOBACTAM 3.375 GM in DEXTROSE/WATER 1 50ML.BAG IVPB SCH (09:54)
[2018-08-06] MEDS: MORPHINE SULFATE ER 15 MG TABLET PO SCH ×2 (09:55→16:08)
[2018-08-06] MEDS: DOCUSATE 100 MG CAP PO SCH (09:58)
[2018-08-06 10:02] LABS: Calcium 9.5 mg/dL (8.4-10.2); Potassium 3.9 mmol/L (3.5-5.1)
[2018-08-06] MEDS: MISOPROSTOL 200 MCG TAB PO SCH ×2 (10:29→15:55)
[2018-08-06 11:38] LABS: Glucose,Whole Blood 157 mg/dL (75-99)
[2018-08-06 12:10] LABS: Basophils % (A) 0 %; Eosinophils # (A) 0.1 k/uL (0-0.7); Eosinophils % (A) 1 %; HCT 47.8 % (39.0-53.0); HGB 14.9 gm/dL (13.0-17.5); Lymphocytes % (A) 6 %; MCH 29.2 pg (25.0-35.0); MCHC 31.2 g/dL (31.0-37.0); MCV 93.5 fL (80.0-100.0); Mean Platelet Volume 6.8; Monocytes # (A) 0.8 k/uL (0-1.0); Monocytes % (A) 5 %; Neutrophils # (A) 14.8 k/uL (1.3-7.7); Neutrophils % (A) 87 %; Platelet Count 249 k/uL (150-450); RBC 5.12 m/uL (4.30-5.90); RDW 15.3 % (11.5-15.5)
--- NOTE | 2018-08-06 14:35 | P.DS ---
Providers Date of admission: 08/01/18 19:34 Expected date of discharge: 08/06/18 Attending physician: Cristian Mojica Consults: 08/01/18 19:30 Consult Physician Routine Consulting Provider: Jay Plunkett Consult Reason/Comments: pulmonary fibrosis Do you want consulting provider notified?: Yes, Notify in am 08/01/18 19:49 Consult Physician Routine Consulting Provider: Martha Flores Consult Reason/Comments: nstemi Do you want consulting provider notified?: Yes Primary care physician: [facility] Hospital Course: Final Diagnoses: -Acute on chronic hypoxic respiratory failure secondary to worsening pulmonary fibrosis with UIP pathology confirmed on open lung biopsy. No clear evidence of superinfection, no evidence of underlying heart failure.BNP was slightly elevated and the patient was subjected to diuretics. The patient subsequently developed an acute kidney injury/renal azotemia related to diuresis. -Mildly elevated troponin secondary to hypoxemia as per cardiology -Hypertension -Osteoarthritis -No code, no CPR, no intubation Hospital course:52-year-old gentleman with interstitial pulmonary fibrosis uses anywhere between 5-7 L of oxygen at home came in with complaints compensative shortness of breath patient is presently on BiPAP there is concern about right lower lobe pneumonia because of which patient was started on empiric Zosyn by pulmonary. Patient's crackles in bilateral lower lung bases although improved. Patient is still complaining of significant shortness of breath. Evaluated by cardiology and pulmonary. Diuretics have been placed on hold secondary to renal function. Maintained on nebulized bronchodilators, systemic steroids, antibiotics. BiPAP at bedside for PRN use. Maintained on 7-8 L high flow nasal cannula to maintain O2 sats in the low 90s. Patient has been cleared for discharge by both cardiology and pulmonary.Patient being discharged to subacute rehab, [facility] in a stable condition with guarded prognosis. Maintain empiric antibiotics. Requesting hospice informational meeting. Exam PHYSICAL EXAMINATION: GENERAL: The patient is alert and oriented x3, not in any acute distress. CARDIOVASCULAR: S1 and S2 present. No murmurs, rubs, or gallops. PULMONARY: Diminished air entry with Coarse Bibasilar crackles ABDOMEN: Soft, nontender, nondistended, normoactive bowel sounds. No palpable organomegaly. NEUROLOGICAL: Gross neurological examination did not reveal any focal deficits. Time taken: 35 minutes Patient Condition at Discharge: Stable Plan - Discharge Summary Discharge Rx Participant: No New Discharge Prescriptions: New Aspirin 81 mg PO DAILY chew Ipratropium-Albuterol Nebulize [Duoneb 0.5 mg-3 mg/3 ml Soln] 3 ml INHALATION RT-QID ampul.neb Ipratropium-Albuterol Nebulize [Duoneb 0.5 mg-3 mg/3 ml Soln] 3 ml INHALATION Q4H PRN ampul.neb PRN Reason: Shortness Of Breath Or Wheezing Amoxic-Pot Clav 875-125Mg [Augmentin 875-125] 1 tab PO Q12HR #10 tablet INSULIN LISPRO (HumaLOG) [humaLOG] 0 unit SQ ACHS #1 vial predniSONE 10 mg PO DIRECTED #30 tab Continue Misoprostol [Cytotec] 200 mcg PO QID Cholecalciferol [Vitamin D3] 2,000 unit PO DAILY Gabapentin [Neurontin] 900 mg PO QID Cyclobenzaprine [Flexeril] 10 mg PO TID PRN PRN Reason: Pain Fluticasone Nasal [place] [Flonase Nasal [place]] 1 spray EA NOSTRIL BID PRN PRN Reason: Allergy Symptoms Naproxen 500 mg PO BID Docusate [Colace] 100 mg PO BID cap Multivitamins, Thera [Multivitamin (formulary)] 1 tab PO DAILY Lactobacillus Acidophilus [Acidophilus] 1 tab PO DAILY Hydrophilic Cream [Kerodex 71 Cream] 1 applic TOPICAL DAILY guaiFENesin 400 mg PO BID Venlafaxine HCl [Effexor XR] 75 mg PO DAILY Polyethylene Glycol 3350 [Miralax] 17 gm PO 1700 Metoprolol Tartrate [Lopressor] 12.5 mg PO BID Enalapril [Vasotec] 20 mg PO HS Loratadine [Claritin] 10 mg PO DAILY Nintedanib Esylate [Ofev] 150 mg PO AC-BID Morphine Sulfate [Ms Contin] 15 mg PO TID #9 tablet.er predniSONE 15 mg PO DAILY #0 Discontinued hydrOXYzine PAMOATE 25 mg PO Q8H PRN PRN Reason: Anxiety Naloxone HCl [Narcan] 4 mg NASAL DIRECTED Hydrochlorothiazide [Hydrodiuril] 25 mg PO DAILY Discharge Medication List Cholecalciferol [Vitamin D3] 2,000 unit PO DAILY 06/19/16 [History] Cyclobenzaprine [Flexeril] 10 mg PO TID PRN 06/19/16 [History] Gabapentin [Neurontin] 900 mg PO QID 06/19/16 [History] Misoprostol [Cytotec] 200 mcg PO QID 06/19/16 [History] Fluticasone Nasal [place] [Flonase Nasal [place]] 1 spray EA NOSTRIL BID PRN [History] Naproxen 500 mg PO BID 09/11/16 [History] Docusate [Colace] 100 mg PO BID cap 09/19/16 [Rx] Enalapril [Vasotec] 20 mg PO HS 08/01/18 [History] Hydrophilic Cream [Kerodex 71 Cream] 1 applic TOPICAL DAILY 08/01/18 [History] Lactobacillus Acidophilus [Acidophilus] 1 tab PO DAILY 08/01/18 [History] Loratadine [Claritin] 10 mg PO DAILY 08/01/18 [History] Metoprolol Tartrate [Lopressor] 12.5 mg PO BID 08/01/18 [History] Multivitamins, Thera [Multivitamin (formulary)] 1 tab PO DAILY 08/01/18 [History ] Nintedanib Esylate [Ofev] 150 mg PO AC-BID 08/01/18 [History] Polyethylene Glycol 3350 [Miralax] 17 gm PO 1700 08/01/18 [History] Venlafaxine HCl [Effexor XR] 75 mg PO DAILY 08/01/18 [History] guaiFENesin 400 mg PO BID 08/01/18 [History] Amoxic-Pot Clav 875-125Mg [Augmentin 875-125] 1 tab PO Q12HR #10 tablet [Rx] Aspirin 81 mg PO DAILY chew 08/06/18 [Rx] INSULIN LISPRO (HumaLOG) [humaLOG] 0 unit SQ ACHS #1 vial 08/06/18 [Rx] Ipratropium-Albuterol Nebulize [Duoneb 0.5 mg-3 mg/3 ml Soln] 3 ml INHALATION Q4H PRN ampul.neb 08/06/18 [Rx] Ipratropium-Albuterol Nebulize [Duoneb 0.5 mg-3 mg/3 ml Soln] 3 ml INHALATION RT -QID ampul.neb 08/06/18 [Rx] Morphine Sulfate [Ms Contin] 15 mg PO TID #9 tablet.er 08/06/18 [Rx] predniSONE 10 mg PO DIRECTED #30 tab 08/06/18 [Rx] predniSONE 15 mg PO DAILY #0 08/06/18 [Rx] Follow up Appointment(s)/Referral(s): [facility] [Provider Group] - 1 Week Garcia English MD [STAFF PHYSICIAN] - 1 Week Alfredo Dowell MD [REFERRING] - 3 Days (While at [facility]) [facility] [Primary Care Provider] - As Needed (please call to schedule your own appointment per [place] rules) Patient Instructions/Handouts: Heart Failure (DC), Heart Healthy Diet (DC), COPD (Chronic Obstructive Pulmonary Disease) (DC) Activity/Diet/Wound Care/Special Instructions: [facility]. Hospice informational meeting Diet: Cardiac Activity: As tolerated CBC, BMP in 3 days Diuretics on hold secondary to renal function 7-8 L high flow nasal cannula, to maintain parameters as per pulmonary Bipap at bedside, settings as per pulmonary Discharge Disposition: TRANSFER TO SNF/ECF
[2018-08-06] MEDS: LACTOBACILLUS ACIDOPH & BULGAR 1 EACH PACKET PO SCH (15:18)
[2018-08-06] MEDS ORDERED: ALPRAZolam 0.5 MG TAB PO PRN (15:40)
--- NOTE | 2018-08-06 15:55 | P.PN ---
Subjective Progress Note Date: 08/06/18 This is a pleasant 58-year-old gentleman with past medical history significant for pulmonary fibrosis, COPD, chronic hypoxic respiratory failure, hypertension and osteoarthritis. Upon examination, patient is resting comfortably in bed. He feels his breathing is better today and is using his BiPAP last. Denies chest discomfort, palpitations or dizziness. Currently maintained on Lasix 20 mg twice a day, IV antibiotics and IV steroids. Laboratory values today shown BUN 47, creatinine 1.63 which is up from yesterday. and a white blood cell count of 18,600. Patient was started on Aldactone with an increase in creatinine therefore it was subsequently discontinued. There have been discussions possibly transferring patient to hospice. Objective - Vital Signs Vital signs: Vital Signs Temp 97.7 F 08/06/18 04:00 Pulse 100 08/06/18 12:12 Resp 18 08/06/18 12:02 BP 114/82 08/06/18 04:00 Pulse Ox 92 L 08/06/18 08:21 Intake & Output 08/05/18 08/06/18 08/06/18 18:59 06:59 18:59 Intake Total 436 790 440 Output Total 650 600 500 Balance -214 190 -60 Weight 106.5 kg Intake: IV 40 0.9 40 Intake, IV Titration 50 Amount Piperacillin-Tazobactam 3 50 .375 gm In Dextrose/Water 1 50ml.bag @ 12.5 mls/hr IVPB Q8HR [facility] Rx#: [id number] Oral 436 700 440 Output: Urine 650 600 500 Other: Voiding Method Urinal Urinal Urinal # Bowel Movements 1 - Exam PHYSICAL EXAMINATION: HEENT: [Head is atraumatic, normocephalic. Pupils equal, round. Neck is supple. There is no elevated jugular venous pressure.] HEART EXAMINATION: [Heart sounds regular, S1 and S2 normal. No murmur or gallop heard.] CHEST EXAMINATION:[ Lungs are clear to auscultation and precussion. No chest wall tenderness is noted on palpation or with deep breathing.] ABDOMEN: [ Soft, nontender. Bowel sounds are heard. No organomegaly noted]. EXTREMITIES:[ peripheral pulses intact with evidence of trace peripheral edema and no calf tenderness noted]. NEUROLOGIC [patient is awake, alert and oriented x3.] . - Labs CBC & Chem 7: 08/06/18 09:18 08/06/18 09:18 Labs: Abnormal Lab Results - Last 24 Hours (Table) 08/05/18 08/05/18 08/06/18 Range/Units 17:00 21:08 06:13 WBC (3.8-10.6) k/uL Neutrophils # (1.3-7.7) k/uL Chloride (98-107) mmol/L Carbon Dioxide (22-30) mmol/L BUN (9-20) mg/dL Glucose (74-99) mg/dL POC Glucose (mg/dL) 135 H 173 H 109 H (75-99) mg/dL 08/06/18 08/06/18 08/06/18 Range/Units 09:18 09:18 11:36 WBC 17.0 H (3.8-10.6) k/uL Neutrophils # 14.8 H (1.3-7.7) k/uL Chloride 92 L (98-107) mmol/L Carbon Dioxide 36 H (22-30) mmol/L BUN 47 H (9-20) mg/dL Glucose 180 H (74-99) mg/dL POC Glucose (mg/dL) 157 H (75-99) mg/dL Microbiology - Last 24 Hours (Table) 08/01/18 17:52 Blood Culture - Preliminary Blood No Growth after 96 hours Assessment and Plan Assessment: #1 mild troponin elevation secondary to acute hypoxic respiratory failure secondary to underlying interstitial edema with possible pneumonia #2 acute on chronic diastolic congestive heart failure #3 hypertension #4 pulmonary fibrosis Plan: From cardiology's perspective, patient will be transferring to hospice. We will follow the patient on an as-needed basis. Please do not hesitate to contact us with questions. WOOL WASHER FEEDER note has been reviewed, I agree with a documented findings and plan of care. Patient was seen and examined.
--- NOTE | 2018-08-06 16:01 | P.PN ---
Subjective Progress Note Date: 08/06/18 58-year-old male patient with advanced pulmonary fibrosis/UIP/IPF confirmed through a thoracoscopic lung biopsy approximately 2 years ago. The patient has been progressively getting worse and has developed progressive hypoxic respiratory failure and he has been maintained on high flow oxygen at 67 L per minute nasal cannula on outpatient basis. The potential hospital because of worsening shortness of breath, dry cough and signs of respiratory failure. He has a DNR/DNI CODE STATUS. His proBNP level was significantly elevated and the patient had borderline troponin elevation to. The patient was subjected to diuretics and he is currently on 20 mg of IV Lasix every 12 hours. On today's blood work, his creatinine is up to 1.4. Also he is slightly better. It seems that he is getting gradually back to his baseline. No fever. No chills. Still on 7 L about 2 by nasal cannula. He likes his BiPAP and he was wondering whether BiPAP machine can be ordered for him on outpatient basis. I told the patient and unfortunately this may not be possible as this is not indicated for pulmonary fibrosis related to respiratory failure. Previous echo of the heart from 2016 showed an ejection fraction of 6065%. No other valvular abnormalities noted. No leukocytosis. Blood cultures been negative. The patient remains on bronchodilators [id number] with DuoNeb and IV Solu- Medrol and the patient is also on empiric antibiotic coverage with IV Zosyn. On 08/06/2018, the patient is essentially the same. Probably slightly less short of breath compared to yesterday. His lung disease is end-stage and the patient has severe pulmonary fibrosis. He is a hospice candidate. On today's evaluation he was taken off the BiPAP and he is placed on 7 L by nasal cannula. Note that he desaturates very easily with activity. No chest pain. No fever or chills. No nausea or vomiting. No pleurisy. No hemoptysis. White cell count is at 17. The patient has been diuresed and the patient is on IV Lasix and the creatinine is at 1.4 with a BUN of 47. Serum bicarb level is at 36. The rest of the electrodes are all within normal limits. It seems that the patient is insistent hospice and a hospice referral will be initiated on this patient in regards to his advanced pulmonary fibrosis which is obviously in stage. No fever. No chills. No other issues otherwise for now. Objective - Vital Signs Vital signs: Vital Signs Temp 97.7 F 08/06/18 04:00 Pulse 100 08/06/18 12:12 Resp 18 08/06/18 12:02 BP 114/82 08/06/18 04:00 Pulse Ox 92 L 08/06/18 08:21 Intake & Output 08/05/18 08/06/18 08/06/18 18:59 06:59 18:59 Intake Total 436 790 440 Output Total 650 600 500 Balance -214 190 -60 Weight 106.5 kg Intake: IV 40 0.9 40 Intake, IV Titration 50 Amount Piperacillin-Tazobactam 3 50 .375 gm In Dextrose/Water 1 50ml.bag @ 12.5 mls/hr IVPB Q8HR [facility] Rx#: [id number] Oral 436 700 440 Output: Urine 650 600 500 Other: Voiding Method Urinal Urinal Urinal # Bowel Movements 1 - Exam Gen. appearance the patient is a mild degree of respiratory distress even at rest. Not using excessive muscle breathing. Is on high flow oxygen for now Head exam was generally normal. There was no scleral icterus or corneal arcus. Mucous membranes were moist. Neck was supple and without jugular venous distension, thyromegaly, or carotid bruits. Carotids were easily palpable bilaterally. There was no adenopathy. Lungs sounds are diminished and the patient has coarse crackles in the mid and lower lung. Bilaterally and air air entry is diminished throughout the lung milner. Abdominal exam revealed normal bowel sounds. The abdomen was soft, non-tender, and without masses, organomegaly, or appreciable enlargement of the abdominal aorta. Examination of the extremities revealed easily palpable radial, femoral and pedal pulses. There was no cyanosis, clubbing or edema. Examination of the skin revealed no evidence of significant rashes, suspicious appearing nevi or other concerning lesions. Neurologically awake and alert and there is no focal neurological deficits. - Labs CBC & Chem 7: 08/06/18 09:18 08/06/18 09:18 Labs: Abnormal Lab Results - Last 24 Hours (Table) 08/05/18 08/05/18 08/06/18 Range/Units 17:00 21:08 06:13 WBC (3.8-10.6) k/uL Neutrophils # (1.3-7.7) k/uL Chloride (98-107) mmol/L Carbon Dioxide (22-30) mmol/L BUN (9-20) mg/dL Glucose (74-99) mg/dL POC Glucose (mg/dL) 135 H 173 H 109 H (75-99) mg/dL 08/06/18 08/06/18 08/06/18 Range/Units 09:18 09:18 11:36 WBC 17.0 H (3.8-10.6) k/uL Neutrophils # 14.8 H (1.3-7.7) k/uL Chloride 92 L (98-107) mmol/L Carbon Dioxide 36 H (22-30) mmol/L BUN 47 H (9-20) mg/dL Glucose 180 H (74-99) mg/dL POC Glucose (mg/dL) 157 H (75-99) mg/dL Microbiology - Last 24 Hours (Table) 08/01/18 17:52 Blood Culture - Preliminary Blood No Growth after 96 hours Assessment and Plan Plan: Assessment 1 IPF. The patient has idiopathic pulmonary fibrosis with UIP pathology confirmed on open lung biopsy and the patient has been maintained on Ofev on outpatient basis. The patient has end-stage lung disease with severe fibrosis and severe hypoxic respiratory failure. 2 acute on chronic hypoxic respiratory failure probably related to worsening of IPF/UIP, natural progression. No clear evidence of a superinfection. No clear evidence of a underlying heart failure. Echocardiogram from 2 years ago was within normal limits. BNP was slightly elevated and the patient was subjected to diuretics. The patient subsequently developed an acute kidney injury/renal azotemia related to diuresis. The renal function today's improvement in the creatinine is down to 1.1. The patient remains on diuretics. 3 acute kidney injury, probably related to diuretics, creatinine is improved and is down to 1.1. 4 troponin leak, questionable non-ST segment elevation myocardial infarction and cardiology on the case 5 significant limitation exercise capacity secondary to IPF 6 DNR/DNI CODE STATUS 7 hypertension 8 osteoarthritis 9 previous history of pneumothorax 10 chronic back pain 11 chronic hypoxic respiratory failure secondary to above Plan Stop IV Solu-Medrol and put the patient prednisone burst taper. Put the patient is an excellent history basis for anxiety. Continue bronchodilators. Continue oxygen therapy along with on and off BiPAP treatment. Hospice referral is very reasonable in this patient.
[2018-08-06] MEDS: MULTIVITAMINS, THERA 1 EACH TAB PO SCH (16:07)
[2018-08-06 16:13] VITALS: TEMP 97.4
[2018-08-06 16:14] VITALS: BP 132/78
[2018-08-06] MEDS ORDERED: predniSONE 20 MG TAB PO SCH (16:15)
--- NOTE | 2018-08-06 16:16 | P.PN ---
Subjective Progress Note Date: 08/05/18 Principal diagnosis: Acute hypoxic respiratory failure secondary to pulmonary fibrosis Possible pneumonia right lower lobe 52-year-old gentleman with interstitial pulmonary fibrosis uses anywhere between 5-7 L of oxygen at home came in with complaints compensative shortness of breath patient is presently on BiPAP there is concern about right lower lobe pneumonia because of which patient was started on Zosyn by pulmonary. Patient' s crackles in bilateral lower lung bases although improved. Patient is still complaining of significant shortness of breath. 08/04/2018 No cigarette in overnight events respiratory status improved a little bit but still remains on BiPAP on and off overall prognosis is extremely poor PT and OT evaluation today. 08/05/2018 Patient denied any complaints of chest pain. Breathing status is improving. Saturating well on nasal cannula. PT OT is following and possible transfer to rehab in next 24 hours. Patient is being continued on prednisone breathing treatments and antibiotics. Pulmonary is on board. No fever no chills. Constitutional: Denied any fatigue denied any fever. Cardio vascular: denied any chest pain, palpitations Gastrointestinal denied any nausea vomiting Pulmonary: As mentioned in HPI Neurologic denied any new focal deficits Current medications reviewed. Objective - Vital Signs Vital signs: Vital Signs Temp 97.7 F 08/05/18 07:47 Pulse 112 H 08/05/18 16:18 Resp 20 08/05/18 12:00 BP 132/99 08/05/18 12:00 Pulse Ox 94 L 08/05/18 12:00 Intake & Output 08/04/18 08/05/18 08/05/18 18:59 06:59 18:59 Intake Total 480 85 436 Output Total 1450 800 650 Balance -970 -715 -214 Weight 105.7 kg Intake: IV 35 0.9 35 Intake, IV Titration 50 Amount Piperacillin-Tazobactam 3 50 .375 gm In Dextrose/Water 1 50ml.bag @ 12.5 mls/hr IVPB Q8HR [facility] Rx#: [id number] Oral 480 436 Output: Urine 1450 800 650 Other: Voiding Method Urinal # Voids 1 # Bowel Movements 0 - Exam GENERAL: The patient is alert and oriented x3, not in any acute distress. Well developed, well nourished. HEENT: Pupils are round and equally reacting to light. EOMI. No scleral icterus. No conjunctival pallor. Normocephalic, atraumatic. No pharyngeal erythema. No thyromegaly. CARDIOVASCULAR: S1 and S2 present. No murmurs, rubs, or gallops. PULMONARY: Bibasilar crackles, fairly but good air entry bilateral lung milner ABDOMEN: Soft, nontender, nondistended, normoactive bowel sounds. No palpable organomegaly. MUSCULOSKELETAL: No joint swelling or deformity. EXTREMITIES: No cyanosis, clubbing, or pedal edema. NEUROLOGICAL: Gross neurological examination did not reveal any focal deficits. SKIN: No rashes. - Labs CBC & Chem 7: 08/06/18 09:18 08/06/18 09:18 Labs: Abnormal Lab Results - Last 24 Hours (Table) 08/04/18 08/05/18 08/05/18 Range/Units 20:52 06:02 06:02 WBC 18.6 H (3.8-10.6) k/uL Chloride 92 L (98-107) mmol/L Carbon Dioxide 35 H (22-30) mmol/L BUN 47 H (9-20) mg/dL Creatinine 1.63 H (0.66-1.25) mg/dL Glucose 181 H (74-99) mg/dL POC Glucose (mg/dL) 185 H (75-99) mg/dL 08/05/18 08/05/18 08/05/18 Range/Units 06:04 11:40 17:00 WBC (3.8-10.6) k/uL Chloride (98-107) mmol/L Carbon Dioxide (22-30) mmol/L BUN (9-20) mg/dL Creatinine (0.66-1.25) mg/dL Glucose (74-99) mg/dL POC Glucose (mg/dL) 168 H 163 H 135 H (75-99) mg/dL Microbiology - Last 24 Hours (Table) 08/01/18 17:52 Blood Culture - Preliminary Blood No Growth after 72 hours Assessment and Plan Assessment: -Acute on chronic hypoxic respiratory failure secondary to pulmonary fibrosis patient was started on systemic steroids. Possibility of right lower lobe pneumonia for which patient was started on Zosyn -Cannot rule out chronic diastolic dysfunction with acute exacerbation ration is on oral Lasix at the 20 twice a day -Mildly elevated troponin secondary to hypoxemia cardiology evaluated the patient heparin was discontinued. -Hypertension -Osteoarthritis Time with Patient: Greater than 30
[2018-08-06 16:19] VITALS: PULSE 100
== END 2018-08-06 16:35 | DRG 196 ==
LOC: EC 17:22 → 6SEL 19:34
PROVIDERS: ADMIT Internal Medicine; ATTEND Internal Medicine
DX: J84.112 Idiopathic pulmonary fibrosis (principal); J96.21 Acute and chronic respiratory failure with hypoxia; I50.33 Acute on chronic diastolic (congestive) heart failure; I21.A1 Myocardial infarction type 2; N17.9 Acute kidney failure, unspecified; E87.2 Acidosis; J44.9 Chronic obstructive pulmonary disease, unspecified; M19.90 Unspecified osteoarthritis, unspecified site; F32.9 Major depressive disorder, single episode, unspecified; M79.2 Neuralgia and neuritis, unspecified; I11.0 Hypertensive heart disease with heart failure; Z66 Do not resuscitate; T50.2X5A Adverse effect of carbonic-anhydrase inhibitors, benzothiadiazides and other diuretics, initial encounter; Z99.81 Dependence on supplemental oxygen; Z87.891 Personal history of nicotine dependence; Z79.51 Long term (current) use of inhaled steroids; Z79.899 Other long term (current) drug therapy; Z88.5 Allergy status to narcotic agent; Z79.891 Long term (current) use of opiate analgesic
CPT/HCPCS: 36415; 71045; 80048; 80053; 80061; 82550; 82553; 83036; 83735; 83880; 84484; 85025; 85027; 85610; 85730; 87040; 93005; 94640; 94644; 94660; 96365; 96375; 99285